=== PATIENT | male | born 1975 | race Caucasian/White ===

== ENCOUNTER → 2018-05-20 12:08 | Outpatient (CLI) | payer OTHER, SELFPAY ==
[2018-05-21 16:09] LABS: Endomysial Antibody IgA Negative (Negative)
[2018-05-22 13:41] LABS: Immunoglobulin A 131 mg/dL (90-386); t-Transglutaminase IgA <2 U/mL (0-3)
== END ==
PROVIDERS: Family Provider Family Medicine; PCP Family Medicine; Referring Provider Family Medicine; Visit Provider Family Medicine
DX: K52.9 Noninfective gastroenteritis and colitis, unspecified (principal)
CPT/HCPCS: 82784; 83516; 86255

== ENCOUNTER → 2020-11-16 11:00 | Outpatient (CLI) | payer OTHER, SELFPAY ==
[2020-11-16 12:10] LABS: Hematocrit 44.4 % (40-54); Hemoglobin 14.8 g/dL (13.0-16.5); Mean Corp Hgb Conc 33.3 g/dL (32-36); Mean Corpuscular Hgb 29.9 pg (27.0-32.0); Mean Corpuscular Volume 89.7 fL (80-94); Mean Platelet Vol. 10.1 fl (6.2-12.0); Platelet Count 294 K/mm3 (150-450); RBC Distribution Width CV 12.6 % (11.6-14.6); RBC Distribution Width SD 41.5 fl (35.1-43.9); Red Blood Count 4.95 M/mm3 (4.6-6.2); White Blood Count 6.5 K/mm3 (4.4-11.0)
[2020-11-16 12:34] LABS: CRP 9.05 mg/L (0.0-3.0)
[2020-11-17 16:08] LABS: Endomysial Antibody IgA Negative (Negative)
[2020-11-17 18:44] LABS: Immunoglobulin A 122 mg/dL (90-386); t-Transglutaminase IgA <2 U/mL (0-3)
== END ==
PROVIDERS: PCP Family Medicine; Referring Provider Internal Medicine Gastroenterology; Visit Provider Internal Medicine Gastroenterology
DX: R19.7 Diarrhea, unspecified (principal)
CPT/HCPCS: 36415; 82784; 83516; 85027; 86140; 86255

== ENCOUNTER → 2021-07-18 | Outpatient (CLI) | payer OTHER, SELFPAY | END | disposition home or self-care (01) | LOC: LABSPEC 15:24 | PROVIDERS: PCP Family Medicine; Visit Provider Family Medicine | DX: Z20.828 Contact with and (suspected) exposure to other viral communicable diseases (principal) | CPT/HCPCS: 87633; 87635; U0005; U0003 ==

== ENCOUNTER 2021-11-13 08:09 | Outpatient (CLI) | payer OTHER, SELFPAY ==
[2021-11-15 14:48] LABS: H. PYLORI STOOL AG Negative (Negative)
[2021-11-15 21:25] LABS: Calprotectin, Stool 304 ug/g (0-120)
== END 2021-11-13 23:59 | disposition home or self-care (01) ==
LOC: LABSPEC 08:11
PROVIDERS: PCP Family Medicine; Referring Provider Internal Medicine Gastroenterology; Visit Provider Internal Medicine Gastroenterology
DX: R19.7 Diarrhea, unspecified (principal)
CPT/HCPCS: 83630; 83993; 87177; 87209; 87493; 87506

== ENCOUNTER 2021-11-20 18:30 | Outpatient (CLI) | payer OTHER, SELFPAY ==
--- NOTE | 2021-11-20 18:39 | CT_ITS ---
STUDY: CT ABDOMEN AND PELVIS WITH CONTRAST REASON FOR EXAM: Male, 46 years old. diarrhea RADIATION DOSAGE (If Supplied By Facility): CTDIvol = ( 16.04 ) mGy, DLP = ( 1220.32 ) mGycm TECHNIQUE: Transaxial images were obtained from the dome of the diaphragm to the symphysis pubis without oral contrast. Oral and amp; IV Gastrografin and amp; 100mL Isovue-300 was administered. Sagittal and coronal images were reconstructed. Individualized dose optimization techniques were used for this CT. COMPARISON: None. FINDINGS: The visualized lung bases are unremarkable. The visualized portions of the heart are within normal limits. Normal liver. Normal gallbladder and extrahepatic biliary system. Normal spleen. Normal pancreas. Normal bilateral adrenal glands. There is a 4 mm nonobstructing stone in the right kidney.. Normal left kidney. Normal visualized stomach. The terminal ileum is thickened.. Normal colon. The appendix is visualized and appears normal. Normal abdominal aorta. Normal inferior vena cava. Normal retroperitoneum. Normal urinary bladder. Normal abdominal wall. Normal osseous structures. CT/Abdomen/Pelvis WITH Contrast IMPRESSION: The terminal ileum is thickened. Electronically Signed: Chandrakant Hale MD at 6:40 EDT ,
== END 2021-11-20 23:59 | disposition home or self-care (01) ==
LOC: CT 18:37
PROVIDERS: PCP Family Medicine; Visit Provider Internal Medicine Gastroenterology
DX: R19.7 Diarrhea, unspecified (principal)
CPT/HCPCS: 74177; Q9967

== ENCOUNTER 2021-12-05 14:51 | Outpatient (CLI) | payer OTHER, SELFPAY ==
[2021-12-05 15:27] LABS: Erythrocyte Sedimentation Rate 12 mm/hr (0-20)
[2021-12-05 15:51] LABS: CRP 8.93 mg/L (0.0-3.0); LDH 159 U/L (87-241)
[2021-12-07 14:11] LABS: Anti-Centromere B Ab <0.2 AI (0.0-0.9); Anti-Chromatin <0.2 AI (0.0-0.9); Anti-Jo <0.2 AI (0.0-0.9); Anti-Scleroderma-70 AB <0.2 AI (0.0-0.9); RNP Ab <0.2 AI (0.0-0.9); SJOGREN'S Anti-SS-A test < 0.2 AI (0.0-0.9); SJOGREN'S Anti-SS-B test < 0.2 AI (0.0-0.9); Smith Ab <0.2 AI (0.0-0.9)
[2021-12-07 15:58] LABS: Anti-dsDNA Ab <1 IU/mL (0-9)
[2021-12-15 15:08] LABS: Albumin 3.8 g/dL (2.9-4.4); Alpha-1-Globulins 0.2 g/dL (0.0-0.4); Cytoplasmic Ab (C-ANCA) <1:20 titer (Neg:<1:20); Endomysial Antibody IgA Negative (Negative); Gamma Globulin 1.1 g/dL (0.4-1.8); Immunoglobulin A 132 mg/dL (90-386); Immunoglobulin E 55 IU/mL (6-495); Immunoglobulin G 996 mg/dL (603-1613); Immunoglobulin M 122 mg/dL (20-172); PROEL- TOTAL PROTEIN 7.2 g/dL (6.0-8.5)
[2021-12-15 18:07] LABS: Perinuclear Ab (P-ANCA) <1:20 titer (Neg:<1:20); t-Transglutaminase IgA <2 U/mL (0-3)
== END 2021-12-05 23:59 | disposition home or self-care (01) ==
LOC: LAB 14:52
PROVIDERS: PCP Family Medicine; Visit Provider Internal Medicine Gastroenterology
DX: R19.7 Diarrhea, unspecified (principal)
CPT/HCPCS: 36415; 82784; 82785; 83516; 83615; 84165; 85652; 86140; 86225; 86235; 86255; 86256; 86334

== ENCOUNTER 2022-01-11 14:18 | Outpatient (RCR) | payer OTHER, SELFPAY | END 2022-01-16 23:59 | LOC: NS 14:18 | PROVIDERS: PCP Family Medicine; Referring Provider Family Medicine; Visit Provider Family Medicine | DX: E66.9 Obesity, unspecified (principal); Z68.32 Body mass index [BMI] 32.0-32.9, adult | CPT/HCPCS: 97802 ==

== ENCOUNTER 2022-02-01 05:27 | Day surgery (SDC) | payer OTHER, SELFPAY ==
[2022-02-01] VITALS (7 sets, daily range): BP systolic 113–133; BP diastolic 78–84; PULSE 74–90; RESP 16–18; TEMP 36.4–36.7; O2SAT 97; BMI 31.6
[2022-02-01] MEDS: Lactated Ringers 1,000 ML 15 ML IV (06:27)
--- NOTE | 2022-02-01 06:30 | IMM_PTH ---
PATIENT: ROSE HANNON LOC: EN U#:[id number] AGE/SX: 46/M ROOM: RE02/01/[address]: Dr. Leo Davila DO : 1975 BED: DIS: 02/01/2022 SPEC #: [id number] RECD: 02/01/22 13:37 STATUS: ROMÁN REQ #: [id number] LENY: 02/01/22 06:[address]: Leo Davila DEPT: IMMUNOHISTOCHEMISTRY RECD BY: Ambar Anna ENTERED: 02/01/22 13:38 SP TYPE: IMMUNO OTHR DR: Dr. Bj Wyatt MD Tissues: C - Stomach, NOS Procedures: H Pylori (initial) PHYSICIAN & INSTITUTION [place] [address] SPECIMEN INFORMATION: Tissue Source: C ? Gastric pyloric biopsy Clinical Info: Diarrhea, Laboy?s esophagus Specimen Number: [id number] CPT code: 68427 METHODOLOGY: Deparaffinized sections of prefer/formalin-fixed tissue or PAP/DQ stained slides are incubated with monoclonal/polyclonal antibodies/oligonucleotide probes. Localization is made via biotin free immunoperoxidase method. Appropriate controls are performed and reacted as expected. Results on target cell population are indicated in the following table: RESULTS: ANTIBODY / CLONE RESULT Block C H Pylori (polyclonal) negative These tests were developed and their performance characteristics determined by [facility]. They may not have been cleared or approved by the U.S. Food and Drug Administration. The FDA has determined that such clearance or approval is not necessary. The above immunohistochemical/dualISH markers are ordered and reviewed by the Pathologist. INTERPRETATION: C. Gastric polyp, biopsy: Negative for Helicobacter pylori organisms. SJ:jeny 02/06/2022
--- NOTE | 2022-02-01 06:30 | EGD_PTH ---
PATIENT: ROSE HANNON LOC: EN U#:[id number] AGE/SX: 46/M ROOM: RE02/01/[address]: Dr. Leo Davila DO : 1975 BED: DIS: 02/01/2022 SPEC #: [id number] RECD: 02/01/22 10:47 STATUS: ROMÁN REAparna #: [id number] LENY: 02/01/22 06:[address]: Leo Davila DEPT: SURGICAL PATHOLOGY RECD BY: Aggie Cavazos ENTERED: 02/01/22 12:51 SP TYPE: EGD [facility]OPSY [facility] DR: Dr. Bj Wyatt MD Tissues: A - Duodenum, NOS B - Submucosa C - Gastric mucous membrane D - Gastric mucous membrane E - Esophagus, NOS Procedures: Surgery Specimen Level IV HEADER OPERATION: EGD ([facility]) PRE-OP DIAGNOSIS: Diarrhea, Laboy?s esophagus TISSUE SUBMITTED: A ? Duodenum biopsy, B ? Submucosal lesion biopsy, C ? Gastric pyloric biopsy, D ? Gastric body biopsy, E ? Distal esophagus biopsy MICROSCOPIC DIAGNOSIS A. Duodenum, biopsy: Fragments of duodenal mucosa with acute and chronic inflammation. B. Submucosal lesion, biopsy: Fragments of gastric mucosa with mild chronic inflammation. See comment. C. Gastric pylorus, biopsy: Fragments of gastric mucosa with focal moderate chronic inflammation. Focal intestinal metaplasia (goblet cell metaplasia). See comment. D. Gastric body, biopsy: Mild gastritis. See microscopic description. E. Distal esophagus, biopsy: Fragments of gastroesophageal mucosa with moderate chronic inflammation and mild acute inflammation. Intestinal metaplasia (goblet cell metaplasia) not identified. SJ:jeny 02/02/2022 COMMENT B. Submucosa is not seen in the submitted specimen. C. The results of immunohistochemistry for Helicobacter pylori will be reported separately ([id number]). Alcian blue/PAS stain with matched control is used in the evaluation of the specimen. E. Alcian blue/PAS stain with matched control is used in the evaluation of the specimen. The specimen predominantly consists of gastric mucosa. Correlation with clinical, endoscopic findings and appropriate follow up are necessary. MICROSCOPIC DESCRIPTION Slides are reviewed. D. The specimen shows fragments of gastric mucosa with chronic inflammatory cell infiltrates in the lamina propria consisting of lymphocytes and plasma cells, consistent with mild chronic gastritis. GROSS DESCRIPTION A - Received in fixative is one container labeled with the patient's name and designated duodenum biopsy. The specimen consists of multiple irregular fragments of [place] soft tissue that in aggregate measure 1 x 0.3 x 0.1 cm. The specimen is totally submitted in one cassette. B - Received in fixative is one container labeled with the patient's name and designated submucosal lesion. The specimen consists of two irregular fragments of [place] soft tissue that in aggregate measure 0.6 x 0.3 x 0.1 cm. The specimen is totally submitted in one cassette. C - Received in fixative is one container labeled with the patient's name and designated gastric pyloric biopsy. The specimen consists of one irregular fragment of [place] soft tissue that measures 0.3 x 0.3 x 0.1 cm. The specimen is totally submitted in one cassette. D - Received in fixative is one container labeled with the patient's name and designated gastric body biopsy. The specimen consists of two irregular fragments of [place] soft tissue that in aggregate measure 0.7 x 0.4 x 0.1 cm. The specimen is totally submitted in one cassette. E - Received in fixative is one container labeled with the patient's name and designated distal esophagus biopsy. The specimen consists of multiple irregular fragments of [place] soft tissue that in aggregate measure 1.3 x 0.3 x 0.1 cm. The specimen is totally submitted in one cassette. / SJ:rg 02/01/2022 TC:3 [facility]: [id number] x5, [id number] x2
--- NOTE | 2022-02-01 06:55 | PCM.HP.BLA ---
History and Physical Date of Admission: 02/01/22 ROSE HANNON, is a 46 M who presents to the office today for further evaluation of diarrhea.? He says that he has been having diarrhea for multiple years.? He has been having more than 6 bowel movements a day without relief from medical therapy or diet change.? He does also have nocturnal diarrhea on occasion.? He denies any fecal incontinence.? He has been on Viberzi with minimal relief. ? He does not know if he has had any other specific medicines for his diarrhea.? His weight has been stable.? He denies any chest pain or shortness of breath.? He denies any nausea.? He has no food intolerances or allergies.? He denies any rash.? He does have well water.? He cannot recall if he has had a stool check for infection.? He has no arthralgias or arthritis.? He has not had any imaging of his abdomen or pelvis.? He has not had any surgeries, other than his wisdom teeth removed.? Viberzi is the only medicine he takes on a daily basis. ROS Const Constitutional: No anorexia, fatigue, fever(s), weight change or sleep problems Eyes Eyes: No change in vision ENT ENT: No abnormal hearing, difficulty swallowing, mouth lesions, tongue swelling or throat swelling Resp Respiratory: No cough or shortness of breath Cardio Cardiology: No chest pain at rest, chest pain with exertion, shortness of breath or dyspnea on exertion Gastro GI: Positive for diarrhea; No difficulty swallowing Genitourinary Male: No difficulty urinating or burning urination Musc Musculoskeletal: No joint pain, joint swelling, muscle weakness or decreased muscle mass Skin Skin: No hair loss in leg, yellowing of the eye, itchy eyes, rash, skin ulcer or skin swelling Neuro Neurology: No abnormal hearing, abnormal movements, confusion, unsteady gait/balance or memory loss Psych Psychiatric: No anxiety, No confusion and No memory loss Endo Endocrine: No fatigue or weight change Aller/Imm Allergy/Immunologic: No itchy eyes, throat swelling or tongue swelling Baron/Lymp Hematologic/Lymphatic: No easy bleeding, easy bruising or enlarged lymph nodes Exam Const General: cooperative and comfortable Nutritional Appearance: average body habitus and well nourished HENMT Head: normal to inspection Ears: hearing grossly normal bilaterally Nose: external nose normal Face and sinus: normal facial exam Mouth: oral mucosae normal Throat: posterior oropharynx normal Eyes General: appearance normal, both eyes and all related structures Neck Neck: normal visual inspection Chest Chest palpation & inspection: normal inspection of the chest and normal palpation of entire chest wall Resp Effort & Inspection: normal respiratory effort Auscultation: Bilateral: Clear to Auscultation Cardio Palpation: normal PMI Rate: regular rate Rhythm: regular rhythm GI Inspection: normal to inspection Auscultation: normal bowel sounds Percussion: normal to percussion Palpation: no hepatosplenomegaly Skin General: no rashes or lesions noted Neuro General: patient alert Extrem General: normal to inspection Psych Affect: normal affect Quality Reporting Tobacco Screening ([facility] 138) Smoking Status: Never smoker Assessment and Plan Assessment and Plan (1) Diarrhea: ?Status:?Acute ? ? ? Orders:?Orders: ? Calprotectin, Stool Today ? ? ? Ova and Parasites 8623 Today ? ? ? CDIFF (PCR) Today ? ? ? ENTERIC PATHOGEN PANEL STOOL Today ? ? ? H. PYLORI STOOL AG Today ? ? ? Stool Lactoferrin/WBC Today ? ? ? Abdomen/Pelvis WITH Contrast Today ?Plan: Will get stool testing for him infectious diarrhea, H. pylori and we will also get his previous blood work for his diarrhea work-up and we will get a CT abdomen pelvis to evaluate for any structural abnormality.? We may also check a serum gastrin level and he will need an upper endoscopy to evaluate his upper GI tract and possibly.? After he is given stool testing done we will get an an antibiotic. I have re-examined the patient. There are no clinical changes since date of exam.
--- NOTE | 2022-02-01 07:02 | OP.EGD_ITS ---
Patient Name: Adrian Brizuela Procedure Date: 02/01/2022 6:19 AM Date of : 1975 Age: 46 Procedure: Upper GI endoscopy Indications: Epigastric abdominal pain, Functional Dyspepsia Providers: Leo Davila DO Referring MD: Leo Davila DO Medicines: Monitored Anesthesia Care Patient Profile: This is a 46 year old male. Refer to note in patient chart for documentation of history and physical. Patient has symptoms. Complications: No immediate complications. Procedure: Pre-Anesthesia Assessment: - Prior to the procedure, a History and Physical was performed, and patient medications and allergies were reviewed. The risks and benefits of the procedure and the sedation options and risks were discussed with the patient. All questions were answered and informed consent was obtained. Patient identification and proposed procedure were verified by the physician in the pre-procedure area. Mental Status Examination: alert and oriented. Airway Examination: normal oropharyngeal airway and neck mobility. Respiratory Examination: clear to auscultation. CV Examination: normal. Prophylactic Antibiotics: The patient does not require prophylactic antibiotics. Prior Anticoagulants: The patient has taken no previous anticoagulant or antiplatelet agents. After reviewing the risks and benefits, the patient was deemed in satisfactory condition to undergo the procedure. The anesthesia plan was to use moderate sedation / analgesia (conscious sedation). Immediately prior to administration of medications, the patient was re-assessed for adequacy to receive sedatives. The heart rate, respiratory rate, oxygen saturations, blood pressure, adequacy of pulmonary ventilation, and response to care were monitored throughout the procedure. The physical status of the patient was re-assessed after the procedure. After obtaining informed consent, the endoscope was passed under direct vision. Throughout the procedure, the patient's blood pressure, pulse, and oxygen saturations were monitored continuously. The gastroscope was introduced through the mouth, and advanced to the second part of duodenum. The upper GI endoscopy was accomplished without difficulty. The patient tolerated the procedure well. Scope In: 6:44:48 AM Scope Out: 6:53:44 AM Total Procedure Duration Time 0 hours 8 minutes 56 seconds Findings: The Z-line was irregular and was found 38 cm from the incisors. Biopsies were taken with a cold forceps for histology. Verification of patient identification for the specimen was done. Estimated blood loss was minimal. Patchy mildly erythematous mucosa without bleeding was found in the gastric body. Biopsies were taken with a cold forceps for histology. Verification of patient identification for the specimen was done. Estimated blood loss was minimal. Patchy mild inflammation characterized by congestion (edema) was found in the duodenal bulb, in the first portion of the duodenum and in the second portion of the duodenum. Biopsies were taken with a cold forceps for histology. Verification of patient identification for the specimen was done. Estimated blood loss was minimal. There was a small lipoma, 5 mm in diameter, in the gastric antrum. Impression: - Z-line irregular, 38 cm from the incisors. Biopsied. - Erythematous mucosa in the gastric body. Biopsied. - Duodenitis. Biopsied. Recommendation: - Discharge patient to home. - Resume previous diet. - Continue present medications. - Await pathology results. Procedure Code(s): --- Professional --- 35566, Esophagogastroduodenoscopy, flexible, transoral; with biopsy, single or multiple CPT copyright 2017 [employer]. All rights reserved. The codes documented in this report are preliminary and upon excellence leader review may be revised to meet current compliance requirements. Leo Davila DO 02/01/2022 7:02:11 AM This report has been signed electronically. Number of Addenda: 1 Note Initiated On: 02/01/2022 6:19 AM Addendum Number: 1 Addendum Date: 05/22/2022 6:13:27 AM MAC was used as sedation for this procedure. Leo Davila DO 05/22/2022 6:13:31 AM This report has been signed electronically.
--- NOTE | 2022-02-01 07:03 | OP.CCLET_ITS ---
05/22/2022 Bj Wyatt Re : Upper GI endoscopy procedure for Adrian Brizuela Dear Edmundo This procedure was performed on January. My impressions and recommendations are as follows: Impressions : - Z-line irregular, 38 cm from the incisors. Biopsied. - Erythematous mucosa in the gastric body. Biopsied. - Duodenitis. Biopsied. Recommendations : - Discharge patient to home. - Resume previous diet. - Continue present medications. - Await pathology results. My findings are described in the full procedure note, which is enclosed. If I can be of further assistance, please feel free to contact me at . Sincerely, eLo Davila DO 02/01/2022 7:02:11 AM This report has been signed electronically.
== END 2022-02-01 07:27 | disposition home or self-care (01) ==
LOC: EN 05:33 → AC 05:33
PROVIDERS: PCP Family Medicine; Referring Provider Internal Medicine Gastroenterology; Visit Provider Internal Medicine Gastroenterology
PROC: 0DJ08ZZ Inspection of Upper Intestinal Tract, Via Natural or Artificial Opening Endoscopic (ICD-10-PCS; CPT 43235; principal; 2022-02-01 06:25)
DX: K31.A0 Gastric intestinal metaplasia, unspecified (principal); K29.50 Unspecified chronic gastritis without bleeding; R19.7 Diarrhea, unspecified; K29.80 Duodenitis without bleeding; K30 Functional dyspepsia
CPT/HCPCS: 43239; 88305; 88342; J7120; J2405

== ENCOUNTER 2022-02-13 15:31 | Outpatient (RCR) | payer OTHER, SELFPAY | END 2022-02-15 23:59 | LOC: NS 15:31 | PROVIDERS: PCP Family Medicine; Referring Provider Family Medicine; Visit Provider Family Medicine | DX: Z71.3 Dietary counseling and surveillance (principal); E66.9 Obesity, unspecified; Z68.32 Body mass index [BMI] 32.0-32.9, adult | CPT/HCPCS: 97803 ==

== ENCOUNTER → 2022-03-16 | Outpatient (CLI) | payer OTHER, SELFPAY ==
[2022-03-16 10:32] LABS: Erythrocyte Sedimentation Rate 16 mm/hr (0-20)
[2022-03-16 10:46] LABS: CRP 8.15 mg/L (0.0-3.0); Lipase 148 U/L (73-393)
[2022-03-21 12:08] LABS: HEPATITIS B SURFACE AG Negative (Negative); Hep C Antibodies <0.1 s/co ratio (0.0-0.9); Hepatitis A IgM Antibody Negative (Negative); Hepatitis B Core AB IgM Negative (Negative); QNTFERON TB Mitogen Value > 10.00 IU/mL (.); QNTFERON TB Nil Value 0.07 IU/mL (.); QNTFERON TB1+ Ag Value 0.06 IU/mL (.); QNTFERON TB2+ Ag Value 0.08 IU/mL (.)
[2022-03-21 16:21] LABS: QNTIFERON TB Positive Criteria Negative (Negative)
== END | disposition home or self-care (01) ==
LOC: LAB 09:47
PROVIDERS: PCP Family Medicine; Referring Provider Internal Medicine Gastroenterology; Visit Provider Internal Medicine Gastroenterology
DX: R19.7 Diarrhea, unspecified (principal)
CPT/HCPCS: 36415; 80074; 83690; 85652; 86140; 86480

== ENCOUNTER → 2022-03-19 | Outpatient (CLI) | payer OTHER, SELFPAY ==
--- NOTE | 2022-03-19 15:30 | RAD_ITS ---
EXAM: XR ABDOMEN, 1 VIEW CLINICAL INDICATION: capsule study Technologist Notes PT TOOK AGILE CAPSULE AT 9:30 YESTERDAY MORNING TECHNIQUE: Frontal supine view of the abdomen/pelvis. This report was created using QuicklyChat report CO-Value technology. COMPARISON: None. FINDINGS: LOWER THORAX: No acute pathology. GASTROINTESTINAL TRACT: Rectangular object Visualized in the right upper quadrant. This is likely the AGILE capsule. This is at the level of the proximal transverse colon. Stool noted in the ascending and proximal transverse colon. Non-obstructive. No bowel or stomach distention. ORGANS: There are calcified phleboliths in the pelvis. This makes differentiation with distal ureteral stones difficult. No organomegaly. BONES/JOINTS: No acute pathology. SOFT TISSUES: No acute pathology. RAD/Abdomen Single View IMPRESSION: Rectangular object Visualized in the right upper quadrant. This is likely the AGILE capsule. This is at the level of the proximal transverse colon. Electronically Signed: Gaston Darden MD at 16:19 EDT ,
== END | disposition home or self-care (01) ==
LOC: RAD 15:28
PROVIDERS: PCP Family Medicine; Visit Provider Internal Medicine Gastroenterology
DX: R19.7 Diarrhea, unspecified (principal)
CPT/HCPCS: 74018

== ENCOUNTER → 2022-03-31 | Outpatient (CLI) | payer OTHER, SELFPAY ==
--- NOTE | 2022-03-31 10:58 | RAD_ITS ---
STUDY: X-RAY - ABDOMEN/PELVIS REASON FOR EXAM: Male, 46 years old. Abdominal pain, pillcam TECHNIQUE: Two AP supine views of the abdomen and pelvis. COMPARISON: None. FINDINGS: Normal visualized lung bases. There is an unremarkable bowel gas pattern. There is no demonstrated free abdominal air. The visualized liver, spleen and kidneys are grossly normal in size and morphology. There are calcified phleboliths in the pelvis. Normal visualized osseous structures. No plain film evidence of foreign body in the GI tract RAD/Abdomen Single View IMPRESSION: Normal x-ray examination of the abdomen and pelvis. Electronically Signed: Scott Mahan MD at 10:10 EDT ,
== END | disposition home or self-care (01) ==
LOC: RAD 04-02 09:00
PROVIDERS: PCP Family Medicine; Referring Provider Internal Medicine Gastroenterology; Visit Provider Internal Medicine Gastroenterology
DX: R10.9 Unspecified abdominal pain (principal)
CPT/HCPCS: 74018

== ENCOUNTER → 2022-05-15 | Outpatient (CLI) | payer OTHER, SELFPAY ==
[2022-05-15 13:06] VITALS: BP 134/87; PULSE 87; TEMP 35.7; O2SAT 98
[2022-05-15] MEDS: 0.9% NaCl IVPB Med Flush (250 mL) 15 ML IV (13:38)
[2022-05-15] MEDS: 0.9% NaCl Peripheral Flush Adult/Peds IV (13:39)
[2022-05-15 14:58] VITALS: BP 124/71; PULSE 95; RESP 16; TEMP 36.3
== END | disposition home or self-care (01) ==
LOC: MEDOUTP 12:53
PROVIDERS: PCP Family Medicine; Referring Provider Internal Medicine Gastroenterology; Visit Provider Internal Medicine Gastroenterology
DX: K50.90 Crohn's disease, unspecified, without complications (principal)
CPT/HCPCS: 96365; J7050; A4216; J3358

== ENCOUNTER → 2022-05-23 | Outpatient (CLI) | payer OTHER, SELFPAY ==
[2022-05-23 17:31] LABS: Absolute Lymphocyte Count 1.82 X10^3/uL (0.83-4.51); Absolute Neutrophil Count 8.4 X10^3/uL (2.0-7.7); Basophil# 0.03 X10^3/uL; Basophil% 0.3 % (0-1); Eosinophil# 0.03 X10^3/uL; Eosinophils% 0.3 % (0-5); Hematocrit 41.1 % (40-54); Hemoglobin 14.3 g/dL (13.0-16.5); Lymphocyte # 1.82 X10^3/ul (0.83-4.51); Lymphocyte % 16.8 % (19-41); Mean Corp Hgb Conc 34.8 g/dL (32-36); Mean Corpuscular Hgb 31.2 pg (27.0-32.0); Mean Corpuscular Volume 89.7 fL (80-94); Mean Platelet Vol. 9.9 fl (6.2-12.0); Monocyte# 0.49 X10^3/uL; Monocyte% 4.5 % (0-10); NRBC Flagged by Analyzer 0 % (0-5); Neutrophil % 77.4 % (47-70); Platelet Count 286 K/mm3 (150-450); RBC Distribution Width CV 13.3 % (11.6-14.6); RBC Distribution Width SD 43.5 fl (35.1-43.9); Red Blood Count 4.58 M/mm3 (4.6-6.2); White Blood Count 10.9 K/mm3 (4.4-11.0)
[2022-05-23 17:58] LABS: Vitamin B12 302 pg/mL (211-911); Vitamin D,25 Hydroxy 23.1 ng/mL
[2022-05-23 18:16] LABS: ALB/GLOB Ratio 0.9 RATIO (0.9-2.4); AST(SGOT) 17 U/L (15-37); Alanine Aminotransfer ALT/SGPT 48 U/L (16-61); Albumin, Serum 3.7 g/dL (3.2-5.0); Alkaline Phosphatase 68 U/L (45-117); Anion Gap 9 (5-15); BUN 28 mg/dL (7-18); BUN/Creat Ratio 22.8 RATIO (10-20); Calcium,Total 9.4 mg/dL (8.5-10.1); Chloride 106 mmol/L (98-107); Cholesterol 226 mg/dL (200); Creatinine, Serum 1.23 mg/dL (0.70-1.30); EST Glomerular Filtration Rate 66 mL/min (>60); Est Glom Filt Rate - Afr Amer 80 mL/min (>60); Ferritin 164 ng/mL (26-388); Globulin 3.9 g/dL (2.2-4.2); Glucose 142 mg/dL (74-106); High Density Lipoprotein 39 mg/dL; Iron 73 ug/dL (65-175); Potassium 3.7 mmol/L (3.5-5.1); Protein, Total 7.6 g/dL (6.4-8.2); Sodium Level 138 mmol/L (136-145); T4 Free Direct 0.92 ng/dL (0.76-1.46); Triglycerides 561 mg/dL
== END | disposition home or self-care (01) ==
LOC: MFPLAB 15:39
PROVIDERS: PCP Family Medicine; Referring Provider Family Medicine; Visit Provider Family Medicine
DX: E78.5 Hyperlipidemia, unspecified (principal); K50.90 Crohn's disease, unspecified, without complications; R53.83 Other fatigue
CPT/HCPCS: 36415; 80053; 80061; 82306; 82607; 82728; 83540; 84439; 84443; 85025

== ENCOUNTER → 2022-05-28 | Outpatient (CLI) | payer OTHER, SELFPAY ==
[2022-05-28 10:53] LABS: Hemoglobin A1c 6.5 % (3.8-5.6)
[2022-05-28 11:17] LABS: AST(SGOT) 14 U/L (15-37); Alanine Aminotransfer ALT/SGPT 44 U/L (16-61); Albumin, Serum 3.4 g/dL (3.2-5.0); Alkaline Phosphatase 57 U/L (45-117); Anion Gap 8 (5-15); BUN 20 mg/dL (7-18); BUN/Creat Ratio 21.7 RATIO (10-20); Chloride 106 mmol/L (98-107); Cholesterol 204 mg/dL (200); Creatinine, Serum 0.92 mg/dL (0.70-1.30); EST Glomerular Filtration Rate 93 mL/min (>60); Est Glom Filt Rate - Afr Amer 112 mL/min (>60); Globulin 3.3 g/dL (2.2-4.2); Glucose 118 mg/dL (74-106); High Density Lipoprotein 39 mg/dL; Potassium 3.7 mmol/L (3.5-5.1); Protein, Total 6.7 g/dL (6.4-8.2); Sodium Level 141 mmol/L (136-145); Triglycerides 389 mg/dL; Very Low Density Lipoprotein 78 mg/dL (5-40)
== END | disposition home or self-care (01) ==
LOC: MFPLAB 08:29
PROVIDERS: PCP Family Medicine; Visit Provider Family Medicine
DX: E78.1 Pure hyperglyceridemia (principal)
CPT/HCPCS: 36415; 80053; 80061; 83036

== ENCOUNTER 2022-08-01 05:28 | Day surgery (SDC) | payer OTHER, SELFPAY ==
[2022-08-01] VITALS (7 sets, daily range): BP systolic 101–126; BP diastolic 79–90; PULSE 81–95; RESP 16–18; TEMP 36.1–36.8; O2SAT 93–97; BMI 31.4
[2022-08-01] MEDS: Lactated Ringers 1,000 ML 15 ML IV (06:07)
--- NOTE | 2022-08-01 06:29 | PCM.HP.BLA ---
History and Physical Date of Admission: 08/01/22 ADRIAN HANNON, is a 46 M who presents to the office today for a follow up visit following an EGD. Adrian established with our clinic on 11/08/21 for further evaluation of diarrhea.? He says that he has been having diarrhea for multiple years.? He has been having more than 6 bowel movements a day without relief from medical therapy or diet change.? He does also have nocturnal diarrhea on occasion.? He denies any fecal incontinence.? He has been on Viberzi with minimal relief. ? He does not know if he has had any other specific medicines for his diarrhea.? His weight has been stable.? He denies any chest pain or shortness of breath.? He denies any nausea.? He has no food intolerances or allergies.? He denies any rash.? He does have well water.? He cannot recall if he has had a stool check for infection.? He has no arthralgias or arthritis.? He has not had any imaging of his abdomen or pelvis.? He has not had any surgeries, other than his wisdom teeth removed.? Viberzi is the only medicine he takes on a daily basis. Abdominal CT .12.08-?The terminal ileum is thickened. EGD 02.01.22?- Z-line irregular, 38 cm from the incisors. Biopsied. ? - Erythematous mucosa in the gastric body.? Biopsied. ? - Duodenitis. Biopsied Pathology found chronic inflammation. Negative for H-pylori Today reports- no changes since his last visit. Patient is still having frequent diarrhea, abdominal pain, gas, and bloating. Patient is not taking any medications currently. ROS Const Constitutional: No fatigue, fever(s), frequent falls, headache(s) or weight change Eyes Eyes: No change in vision ENT ENT: No headache(s) or difficulty swallowing Resp Respiratory: No cough or shortness of breath Cardio Cardiology: No leg pain with exertion Gastro GI: Positive for abdominal pain, bloating, diarrhea and excessive flatus; No change in bowel habits, constipation, heartburn, difficulty swallowing, Vomiting blood/hematemesis, Blood in stool, nausea/dyspepsia or vomiting Genitourinary Male: No difficulty urinating or burning urination Musc Musculoskeletal: Positive for back pain; No abnormal gait, joint pain, joint swelling, muscle cramps, muscle weakness, numbness, stiffness, tingling, Arthritis, sciatica, leg pain at night or leg pain with exertion Skin Skin: No dry skin, lesions, itchy eyes or rash Neuro Neurology: No abnormal gait, dizziness, frequent falls, headache(s), numbness, tingling, tremor(s), Increased tone in limbs, paralysis or seizures Psych Psychiatric: No anxiety, No depression, No paranoia, No Behavioral Problems, No Compulsive Behavior, No hyperactivity, No inattentiveness, No obsessions/compulsions, Positive for Temper Tantrums and No suicidal ideation Endo Endocrine: No fatigue or weight change Aller/Imm Allergy/Immunologic: No itchy eyes Baron/Lymp Hematologic/Lymphatic: No easy bleeding or easy bruising Exam Const General: cooperative and comfortable Nutritional Appearance: average body habitus and well nourished HENMT Head: normal to inspection Ears: hearing grossly normal bilaterally Nose: external nose normal Face and sinus: normal facial exam Mouth: oral mucosae normal Throat: posterior oropharynx normal Eyes General: appearance normal, both eyes and all related structures Neck Neck: normal visual inspection Chest Chest palpation & inspection: normal inspection of the chest and normal palpation of entire chest wall Resp Effort & Inspection: normal respiratory effort Auscultation: Bilateral: Clear to Auscultation Cardio Palpation: normal PMI Rate: regular rate Rhythm: regular rhythm GI Inspection: normal to inspection Auscultation: normal bowel sounds Percussion: normal to percussion Palpation: no hepatosplenomegaly Skin General: no rashes or lesions noted Neuro General: patient alert Extrem General: normal to inspection Psych Affect: normal affect Quality Reporting Tobacco Screening ([facility] 138) Smoking Status: Former smoker Assessment and Plan Assessment and Plan (1) Diarrhea: ?Status:?Acute ?Plan: His CT scan of the abdomen pelvis had shown some thickening in the terminal ileum.? Also he has increased fecal calprotectin at in his stool which I suspect is in its entirety secondary to inflammatory bowel disease.? In particular Crohn's disease more than also colitis due to the fact that he having 5-6 bowel movements per day.? I sainz consider putting him on colestipol or steroids.? However it is bearable for him now and I would not like to start him on anything prior to getting his IBD SGI for Crohn's disease, CRP, ESR, QuantiFERON gold and hepatitis panel.? I am more leaning towards Crohn's disease then we will initiate treatment with Stelara.? He will also have a agile capsule study today to swallow on Saturday ending get a KUB to make sure he goes through Saturday.? If that is fine then I would recommend a normal capsule endoscopy study. (2) GERD (gastroesophageal reflux disease): ?Status:?Acute ?Plan: . ? he is not having any symptoms of reflux disease at this time ? ? ? Orders: Orders CRP Today R19.7 - Diarrhea, unspecified ? Lipase Today R19.7 - Diarrhea, unspecified ? Hepatitis Panel Acute Today R19.7 - Diarrhea, unspecified ? Quantiferon TB-Gold+ Today R19.7 - Diarrhea, unspecified ? Erythrocyte Sed Rate Today R19.7 - Diarrhea, unspecified ? Abdomen Single View 3 Days R19.7 - Diarrhea, unspecified ? I have examined the patient and the H&P has been reviewed. There are no clinical changes since date of exam.
--- NOTE | 2022-08-01 06:30 | COLBX_PTH ---
PATIENT: ROSE HANNON LOC: EN U#:[id number] AGE/SX: 47/M ROOM: RE08/01/[address]: Dr. Leo Davila DO : 1975 BED: DIS: 08/01/2022 SPEC #: [id number] RECD: 08/01/22 12:49 STATUS: ROMÁN REAparna #: [id number] LENY: 08/01/22 06:[address]: Leo Davila DEPT: SURGICAL PATHOLOGY RECD BY: Aggie Cavazos ENTERED: 08/02/22 08:55 SP TYPE: COLON BX OT DR: Dr. Guilherme Smith MD Tissues: A - Cecum, NOS B - COLON BIOPSY Procedures: Surgery Specimen Level IV HEADER OPERATION: Colonoscopy (MAC) PRE-OP DIAGNOSIS: Diarrhea, GERD TISSUE SUBMITTED: A ? Cecum biopsy, B ? Random colonic biopsy MICROSCOPIC DIAGNOSIS A. Cecum, biopsy: Fragments of colonic mucosa, no pathologic diagnosis. B. Colon, random biopsy: Fragments of colonic mucosa, no pathologic diagnosis. KYA:jeny 08/03/2022 MICROSCOPIC DESCRIPTION Slides are reviewed. GROSS DESCRIPTION A - Received in fixative is one container labeled with the patient's name and designated cecum biopsy. The specimen consists of multiple irregular fragments of [place] soft tissue that in aggregate measure 1.5 x 0.4 x 0.1 cm. The specimen is totally submitted in one cassette. B - Received in fixative is one container labeled with the patient's name and designated random colon biopsy. The specimen consists of multiple irregular fragments of [place] soft tissue that in aggregate measure 2.5 x 0.5 x 0.1 cm. The specimen is totally submitted in one cassette. / KAY:jeny 08/02/2022 TC:4 [facility]: [id number] x2
[2022-08-01 06:40] LABS: Bedside Glucose 123 mg/dL (74-106)
--- NOTE | 2022-08-01 07:16 | OP.COLON_ITS ---
Patient Name: Adrian Brizuela Procedure Date: 08/01/2022 6:20 AM Date of : 1975 Age: 47 Procedure: Colonoscopy Indications: Crohn's disease of the small bowel and colon Providers: Leo Davila DO Referring MD: Guilherme Smith Medicines: Monitored Anesthesia Care Patient Profile: This is a 47 year old male. Refer to note in patient chart for documentation of history and physical. Last Colonoscopy: 1 year ago. Complications: No immediate complications. Procedure: Pre-Anesthesia Assessment: - Prior to the procedure, a History and Physical was performed, and patient medications and allergies were reviewed. The risks and benefits of the procedure and the sedation options and risks were discussed with the patient. All questions were answered and informed consent was obtained. Patient identification and proposed procedure were verified by the physician. Mental Status Examination: normal. Prophylactic Antibiotics: The patient does not require prophylactic antibiotics. Prior Anticoagulants: The patient has taken no previous anticoagulant or antiplatelet agents. ASA Grade Assessment: II - A patient with mild systemic disease. After reviewing the risks and benefits, the patient was deemed in satisfactory condition to undergo the procedure. The anesthesia plan was to use monitored anesthesia care (MAC). Immediately prior to administration of medications, the patient was re-assessed for adequacy to receive sedatives. The heart rate, respiratory rate, oxygen saturations, blood pressure, adequacy of pulmonary ventilation, and response to care were monitored throughout the procedure. The physical status of the patient was re-assessed after the procedure. After I obtained informed consent, the scope was passed under direct vision. Throughout the procedure, the patient's blood pressure, pulse, and oxygen saturations were monitored continuously. The colonoscope was introduced through the anus and advanced to the terminal ileum. The colonoscopy was performed without difficulty. The patient tolerated the procedure well. The quality of the bowel preparation was adequate. Scope In: 6:39:33 AM Scope Withdrawal Time 0 hours 15 minutes 51 seconds Scope Out: 7:03:38 AM Total Procedure Duration Time 0 hours 24 minutes 5 seconds Findings: The perianal and digital rectal examinations were normal. An area of moderately congested mucosa was found in the ascending colon and in the cecum. Biopsies were taken with a cold forceps for histology. Verification of patient identification for the specimen was done. Estimated blood loss was minimal. Scattered inflammation, moderate in severity and characterized by erythema, friability and granularity was found in the terminal ileum. Impression: - Congested mucosa in the ascending colon and in the cecum. Biopsied. - Ileitis. Recommendation: - Discharge patient to home. - Resume previous diet. - Continue present medications. - Await pathology results. - Repeat colonoscopy in 1 year for surveillance. Procedure Code(s): --- Professional --- 54201, Colonoscopy, flexible; with biopsy, single or multiple CPT copyright 2017 [employer]. All rights reserved. The codes documented in this report are preliminary and upon dredge mate review may be revised to meet current compliance requirements. Leo Davila DO 08/01/2022 7:15:27 AM This report has been signed electronically. Number of Addenda: 0 Note Initiated On: 08/01/2022 6:20 AM
--- NOTE | 2022-08-01 07:17 | OP.CCLET_ITS ---
08/01/2022 Guilherme Smith [address] [place] [address] Re : Colonoscopy procedure for Adrian Farihabree Dear Dr. Smith This procedure was performed on Monday, August 01, 2022. My impressions and recommendations are as follows: Impressions : - Congested mucosa in the ascending colon and in the cecum. Biopsied. - Ileitis. Recommendations : - Discharge patient to home. - Resume previous diet. - Continue present medications. - Await pathology results. - Repeat colonoscopy in 1 year for surveillance. My findings are described in the full procedure note, which is enclosed. If I can be of further assistance, please feel free to contact me at . Sincerely, Leo Davila, 08/01/2022 7:15:27 AM This report has been signed electronically.
== END 2022-08-01 07:53 | disposition home or self-care (01) ==
LOC: EN 05:28 → AC 05:30
PROVIDERS: PCP Family Medicine; Referring Provider Family Medicine; Visit Provider Internal Medicine Gastroenterology
PROC: 0DJD8ZZ Inspection of Lower Intestinal Tract, Via Natural or Artificial Opening Endoscopic (ICD-10-PCS; CPT 45378; principal; 2022-08-01 06:25)
DX: K50.90 Crohn's disease, unspecified, without complications (principal); Z87.891 Personal history of nicotine dependence
CPT/HCPCS: 45380; 82962; 88305; J7120; J2405

== ENCOUNTER → 2022-08-17 | Outpatient (CLI) | payer OTHER, SELFPAY ==
--- NOTE | 2022-08-17 12:34 | RAD_ITS ---
STUDY: X-RAY - LEFT FOOT CLINICAL: Male, 47 years old. Pain and stiffness TECHNIQUE: 3 view(s) of the foot. COMPARISON: None. FINDINGS: Normal talus, calcaneus, and tarsal bones. Normal visualized subtalar, talonavicular, calcaneocuboid, tarsal and tarsometatarsal articulations. Normal metatarsi. Normal metatarsophalangeal joint of the great toe. Normal tibial and fibular sesamoid bones. Normal interphalangeal joint of the great toe. Normal phalanges of the great toe. Normal second through fifth metatarsophalangeal joints. Normal interphalangeal joints and phalanges of the lesser toes. The soft tissue structures are unremarkable. RAD/Foot min 3 Views IMPRESSION: Normal x-ray examination of the foot. Electronically Signed: Scott Mahan MD at 13:20 EST ,
== END | disposition home or self-care (01) ==
LOC: MTRAD 12:34
PROVIDERS: PCP Family Medicine; Referring Provider Physician Assistant; Visit Provider Physician Assistant
DX: M79.672 Pain in left foot (principal)
CPT/HCPCS: 73630

== ENCOUNTER → 2022-09-20 | Outpatient (CLI) | payer OTHER, SELFPAY ==
[2022-09-20 10:03] LABS: Absolute Lymphocyte Count 1.77 X10^3/uL (0.83-4.51); Absolute Neutrophil Count 4.4 X10^3/uL (2.0-7.7); Basophil# 0.04 X10^3/uL; Basophil% 0.6 % (0-1); Eosinophil# 0.08 X10^3/uL; Eosinophils% 1.2 % (0-5); Hemoglobin 15.3 g/dL (13.0-16.5); Lymphocyte # 1.77 X10^3/ul (0.83-4.51); Lymphocyte % 26.3 % (19-41); Mean Corp Hgb Conc 33.3 g/dL (32-36); Mean Corpuscular Hgb 29.8 pg (27.0-32.0); Mean Corpuscular Volume 89.7 fL (80-94); Monocyte# 0.46 X10^3/uL; Monocyte% 6.8 % (0-10); NRBC Flagged by Analyzer 0 % (0-5); Neutrophil # 4.37 X10^3/uL (2.7-7.7); Platelet Count 230 K/mm3 (150-450); RBC Distribution Width CV 12.4 % (11.6-14.6); RBC Distribution Width SD 40.8 fl (35.1-43.9); Red Blood Count 5.13 M/mm3 (4.6-6.2); White Blood Count 6.7 K/mm3 (4.4-11.0)
[2022-09-20 10:22] LABS: Vitamin D,25 Hydroxy 38.8 ng/mL
[2022-09-20 10:33] LABS: Hemoglobin A1c 5.6 % (3.8-5.6)
[2022-09-20 10:49] LABS: AST(SGOT) 20 U/L (15-37); Alanine Aminotransfer ALT/SGPT 35 U/L (16-61); Alkaline Phosphatase 72 U/L (45-117); Anion Gap 8 (5-15); BUN 24 mg/dL (7-18); BUN/Creat Ratio 22.6 RATIO (10-20); Calcium,Total 9.4 mg/dL (8.5-10.1); Chloride 105 mmol/L (98-107); Cholesterol 189 mg/dL (200); Creatinine, Serum 1.06 mg/dL (0.70-1.30); EST Glomerular Filtration Rate 79 mL/min (>60); Est Glom Filt Rate - Afr Amer 95 mL/min (>60); Globulin 3.9 g/dL (2.2-4.2); Glucose 89 mg/dL (74-106); High Density Lipoprotein 31 mg/dL; Potassium 3.8 mmol/L (3.5-5.1); Protein, Total 7.9 g/dL (6.4-8.2); Sodium Level 139 mmol/L (136-145); Triglycerides 269 mg/dL; Very Low Density Lipoprotein 54 mg/dL (5-40)
[2022-09-20 14:10] LABS: Microalbumin,Random Urine 10.3 mg/L (NO RANGE EST.); Microalbumin:Creatinine Ratio 4.9 mg/g CRE (<30 mg/g CRE)
== END | disposition home or self-care (01) ==
LOC: MFPLAB 08:09
PROVIDERS: PCP Family Medicine; Referring Provider Family Medicine; Visit Provider Family Medicine
DX: E11.9 Type 2 diabetes mellitus without complications (principal); E55.9 Vitamin D deficiency, unspecified
CPT/HCPCS: 36415; 80053; 80061; 82043; 82306; 82570; 83036; 85025

== ENCOUNTER → 2022-09-26 | Outpatient (CLI) | payer OTHER, SELFPAY ==
[2022-09-26 18:22] LABS: Bilirubin, Direct 0.19 mg/dL (0.00-0.30)
== END | disposition home or self-care (01) ==
LOC: MFPLAB 16:05
PROVIDERS: PCP Family Medicine; Visit Provider Family Medicine
DX: E80.6 Other disorders of bilirubin metabolism (principal)
CPT/HCPCS: 36415; 82247; 82248

== ENCOUNTER → 2022-12-20 | Outpatient (CLI) | payer OTHER, SELFPAY ==
[2022-12-20 10:27] LABS: Absolute Lymphocyte Count 1.97 X10^3/uL (0.83-4.51); Absolute Neutrophil Count 3.9 X10^3/uL (2.0-7.7); Basophil# 0.04 X10^3/uL; Basophil% 0.6 % (0-1); Eosinophils% 3.1 % (0-5); Hematocrit 45.1 % (40-54); Lymphocyte # 1.97 X10^3/ul (0.83-4.51); Lymphocyte % 30.1 % (19-41); Mean Corp Hgb Conc 33.3 g/dL (32-36); Mean Corpuscular Hgb 30.2 pg (27.0-32.0); Mean Corpuscular Volume 90.7 fL (80-94); Mean Platelet Vol. 10.4 fl (6.2-12.0); Monocyte# 0.42 X10^3/uL; Monocyte% 6.4 % (0-10); NRBC Flagged by Analyzer 0 % (0-5); Neutrophil # 3.89 X10^3/uL (2.7-7.7); Neutrophil % 59.5 % (47-70); Platelet Count 253 K/mm3 (150-450); RBC Distribution Width CV 13.4 % (11.6-14.6); Red Blood Count 4.97 M/mm3 (4.6-6.2); White Blood Count 6.5 K/mm3 (4.4-11.0)
[2022-12-20 11:05] LABS: Hemoglobin A1c 5.3 % (3.8-5.6)
[2022-12-20 11:06] LABS: Microalbumin,Random Urine 8.2 mg/L (NO RANGE EST.); Microalbumin:Creatinine Ratio 4.7 mg/g CRE (<30 mg/g CRE); Vitamin D,25 Hydroxy 56.2 ng/mL
[2022-12-20 11:13] LABS: CRP 7.61 mg/L (0.0-3.0)
[2022-12-20 11:20] LABS: AST(SGOT) 22 U/L (15-37); Alanine Aminotransfer ALT/SGPT 46 U/L (16-61); Alkaline Phosphatase 80 U/L (45-117); Anion Gap 10 (5-15); BUN 16 mg/dL (7-18); BUN/Creat Ratio 15.2 RATIO (10-20); Calcium,Total 9.5 mg/dL (8.5-10.1); Chloride 102 mmol/L (98-107); Cholesterol 139 mg/dL (200); Creatinine, Serum 1.05 mg/dL (0.70-1.30); EST Glomerular Filtration Rate 80 mL/min (>60); Est Glom Filt Rate - Afr Amer 96 mL/min (>60); Globulin 4.2 g/dL (2.2-4.2); Glucose 96 mg/dL (74-106); High Density Lipoprotein 35 mg/dL; Potassium 3.8 mmol/L (3.5-5.1); Protein, Total 8.2 g/dL (6.4-8.2); Sodium Level 140 mmol/L (136-145); Triglycerides 287 mg/dL; Very Low Density Lipoprotein 57 mg/dL (5-40)
== END | disposition home or self-care (01) ==
PROVIDERS: Internal Medicine Gastroenterology; PCP Family Medicine; Visit Provider Family Medicine
DX: E11.9 Type 2 diabetes mellitus without complications (principal); K50.90 Crohn's disease, unspecified, without complications; E55.9 Vitamin D deficiency, unspecified
CPT/HCPCS: 36415; 80053; 80061; 82043; 82306; 82570; 83036; 85025; 86140

== ENCOUNTER → 2023-01-28 | Outpatient (CLI) | payer OTHER, SELFPAY ==
[2023-01-28 16:55] LABS: Erythrocyte Sedimentation Rate 8 mm/hr (0-20)
[2023-01-28 16:56] LABS: CRP 3.52 mg/L (0.0-3.0)
== END | disposition home or self-care (01) ==
LOC: LAB 15:44
PROVIDERS: PCP Family Medicine; Referring Provider Internal Medicine Gastroenterology; Visit Provider Internal Medicine Gastroenterology
DX: K50.90 Crohn's disease, unspecified, without complications (principal)
CPT/HCPCS: 36415; 85652; 86140

== ENCOUNTER → 2023-02-04 | Outpatient (CLI) | payer OTHER, SELFPAY ==
[2023-02-09 21:07] LABS: Calprotectin, Stool 1120 ug/g (0-120)
== END | disposition home or self-care (01) ==
LOC: LABSPEC 09:49
PROVIDERS: PCP Family Medicine; Referring Provider Internal Medicine Gastroenterology; Visit Provider Internal Medicine Gastroenterology
DX: K50.90 Crohn's disease, unspecified, without complications (principal)
CPT/HCPCS: 83630; 83993

== ENCOUNTER → 2023-06-21 | Outpatient (CLI) | payer OTHER, SELFPAY ==
[2023-06-21 10:10] LABS: Absolute Lymphocyte Count 1.68 X10^3/uL (0.83-4.51); Absolute Neutrophil Count 3.2 X10^3/uL (2.0-7.7); Basophil# 0.05 X10^3/uL; Basophil% 0.9 % (0-1); Eosinophil# 0.14 X10^3/uL; Eosinophils% 2.6 % (0-5); Hematocrit 42.4 % (40-54); Lymphocyte # 1.68 X10^3/ul (0.83-4.51); Lymphocyte % 30.8 % (19-41); Mean Platelet Vol. 10.3 fl (6.2-12.0); Monocyte# 0.35 X10^3/uL; Monocyte% 6.4 % (0-10); NRBC Flagged by Analyzer 0 % (0-5); Neutrophil # 3.23 X10^3/uL (2.7-7.7); Neutrophil % 59.1 % (47-70); Platelet Count 252 K/mm3 (150-450); RBC Distribution Width CV 13.3 % (11.6-14.6); RBC Distribution Width SD 44.4 fl (35.1-43.9); Red Blood Count 4.66 M/mm3 (4.6-6.2); White Blood Count 5.5 K/mm3 (4.4-11.0)
[2023-06-21 10:50] LABS: AST(SGOT) 20 U/L (15-37); Alanine Aminotransfer ALT/SGPT 48 U/L (16-61); Alkaline Phosphatase 75 U/L (45-117); Anion Gap 5 (5-15); BUN 20 mg/dL (7-18); BUN/Creat Ratio 19.6 RATIO (10-20); Calcium,Total 9.3 mg/dL (8.5-10.1); Chloride 105 mmol/L (98-107); Cholesterol 140 mg/dL (200); Creatinine, Serum 1.02 mg/dL (0.70-1.30); EST Glomerular Filtration Rate 82 mL/min (>60); Est Glom Filt Rate - Afr Amer 99 mL/min (>60); Globulin 3.9 g/dL (2.2-4.2); Glucose 98 mg/dL (74-106); High Density Lipoprotein 36 mg/dL; Potassium 4.2 mmol/L (3.5-5.1); Protein, Total 7.9 g/dL (6.4-8.2); Sodium Level 139 mmol/L (136-145); Triglycerides 270 mg/dL; Very Low Density Lipoprotein 54 mg/dL (5-40)
[2023-06-21 11:03] LABS: Hemoglobin A1c 5.3 % (3.8-5.6)
== END | disposition home or self-care (01) ==
LOC: MFPLAB 08:21
PROVIDERS: PCP Family Medicine; Visit Provider Family Medicine
DX: E55.9 Vitamin D deficiency, unspecified (principal); E11.69 Type 2 diabetes mellitus with other specified complication
CPT/HCPCS: 36415; 80053; 80061; 82306; 83036; 85025

== ENCOUNTER → 2023-08-06 | Outpatient (CLI) | payer OTHER, SELFPAY ==
--- NOTE | 2023-08-06 12:43 | ECHOD_ITS ---
Reason For Study: BBB (unspecific) & intraventricular block (nonspecified) Procedure This was a 2D Doppler, Color Flow transthoracic echocardiogram. Exam performed in department. Left Ventricle Normal LV size. Left ventricular systolic function is normal. The estimated ejection fraction is 60 %. Stage 1 diastolic dysfunction. No regional wall motion abnormalities noted. Right Ventricle Normal RV size. Normal systolic function. Atria Normal left atrium. Normal right atrium. Mitral Valve Normal mitral valve. Tricuspid Valve Normal tricuspid valve. Aortic Valve Trisinus/trileaflet aortic valve. Pulmonic Valve The pulmonic valve is not well visualized. Great Vessels Normal aortic root. Pericardium/Pleural No pericardial effusion. MMode/2D Measurements & Calculations LVIDd: 4.5 cm IVSd: 1.2 cm Ao root diam: 3.1 cm LVIDs: 3.1 cm LVPWd: 1.0 cm RVDd: 2.9 cm FS: 31.0 % LAV(MOD-bp): 55.0 ml LVAd ap4: 39.6 cm2 LVAd ap2: 31.1 cm2 LAV(MOD-bp) Indexed: 24.3 ml/m2 LVLd ap4: 9.4 cm LVLd ap2: 8.1 cm LAV(MOD-sp2): 50.0 ml EDV(MOD-sp4): 139.6 ml EDV(MOD-sp2): 99.9 ml LAV(MOD-sp4): 54.9 ml EDV(sp4-el): 141.1 ml EDV(sp2-el): 101.4 ml LVAs ap4: 22.9 cm2 LVAs ap2: 18.3 cm2 LVLs ap4: 7.7 cm LVLs ap2: 7.0 cm ESV(MOD-sp4): 62.2 ml ESV(MOD-sp2): 41.3 ml ESV(sp4-el): 57.5 ml ESV(sp2-el): 40.4 ml EF(MOD-sp4): 55.5 % EF(MOD-sp2): 58.7 % EF(sp4-el): 59.2 % SV(MOD-sp4): 77.4 ml SV(MOD-sp2): 58.6 ml SV(sp4-el): 83.6 ml LA dimension(2D): 4.0 cm LA A4 area: 19.5 cm2 RA A4 area: 13.8 cm2 TAPSE: 2.3 cm Time Measurements MV dec time: 0.19 sec Doppler Measurements & Calculations MV E max wei: 81.8 cm/sec Ao V2 max: 130.2 cm/sec LV V1 max: 120.1 cm/sec MV A max wei: 102.5 cm/sec Ao max P.8 mmHg LV V1 max P.8 mmHg MV E/A: 0.80 Ao V2 mean: 97.8 cm/sec LV V1 mean P.2 mmHg Ao mean P.1 mmHg LV V1 mean: 85.0 cm/sec Ao V2 VTI: 21.8 cm LV V1 VTI: 19.5 cm AV (velocity ratio): 0.90 PA V2 max: 128.2 cm/sec PA V2 mean: 95.4 cm/sec ECHO/Echo Complete Interpretation Summary Normal LV size. Left ventricular systolic function is normal. The estimated ejection fraction is 60 %. Stage 1 diastolic dysfunction. Ordering Physician: Guilherme Smith Referring Physician: Guilherme Smith Performed By: Leslie Trujillo RDCS, RVT
== END | disposition home or self-care (01) ==
LOC: CVS 12:42
PROVIDERS: PCP Family Medicine; Referring Provider Family Medicine; Visit Provider Family Medicine
DX: I45.4 Nonspecific intraventricular block (principal)
CPT/HCPCS: 93306

== ENCOUNTER → 2023-10-02 | Outpatient (CLI) | payer OTHER, SELFPAY ==
[2023-10-02 12:34] LABS: Absolute Lymphocyte Count 1.75 X10^3/uL (0.83-4.51); Absolute Neutrophil Count 5.1 X10^3/uL (2.0-7.7); Basophil# 0.04 X10^3/uL; Basophil% 0.5 % (0-1); Eosinophil# 0.11 X10^3/uL; Eosinophils% 1.5 % (0-5); Hemoglobin 14.4 g/dL (13.0-16.5); Lymphocyte # 1.75 X10^3/ul (0.83-4.51); Lymphocyte % 23.2 % (19-41); Mean Corp Hgb Conc 34.3 g/dL (32-36); Mean Corpuscular Hgb 30.2 pg (27.0-32.0); Mean Corpuscular Volume 88.1 fL (80-94); Mean Platelet Vol. 10.4 fl (6.2-12.0); Monocyte# 0.56 X10^3/uL; Monocyte% 7.4 % (0-10); NRBC Flagged by Analyzer 0 % (0-5); Neutrophil # 5.07 X10^3/uL (2.7-7.7); Neutrophil % 67.1 % (47-70); Platelet Count 228 K/mm3 (150-450); RBC Distribution Width CV 13.3 % (11.6-14.6); RBC Distribution Width SD 43.3 fl (35.1-43.9); Red Blood Count 4.77 M/mm3 (4.6-6.2); White Blood Count 7.6 K/mm3 (4.4-11.0)
[2023-10-02 12:53] LABS: Erythrocyte Sedimentation Rate 13 mm/hr (0-20)
[2023-10-02 13:02] LABS: Hemoglobin A1c 5.8 % (3.8-5.6); Vitamin D,25 Hydroxy 40.3 ng/mL
[2023-10-02 13:06] LABS: AST(SGOT) 34 U/L (15-37); Alanine Aminotransfer ALT/SGPT 61 U/L (16-61); Alkaline Phosphatase 81 U/L (45-117); Anion Gap 7 (5-15); BUN 18 mg/dL (7-18); BUN/Creat Ratio 18.6 RATIO (10-20); CRP 6.66 mg/L (0.0-3.0); Calcium,Total 9.3 mg/dL (8.5-10.1); Chloride 103 mmol/L (98-107); Creatinine, Serum 0.97 mg/dL (0.70-1.30); EST Glomerular Filtration Rate 87 mL/min (>60); Est Glom Filt Rate - Afr Amer 105 mL/min (>60); Globulin 4.1 g/dL (2.2-4.2); Glucose 106 mg/dL (74-106); LDH 163 U/L (87-241); Magnesium 1.8 mg/dL (1.6-2.6); Potassium 3.9 mmol/L (3.5-5.1); Protein, Total 8.1 g/dL (6.4-8.2); Sodium Level 138 mmol/L (136-145)
[2023-10-02 13:31] LABS: Cholesterol 153 mg/dL (200); High Density Lipoprotein 36 mg/dL; Triglycerides 413 mg/dL
== END | disposition home or self-care (01) ==
PROVIDERS: PCP Family Medicine; Referring Provider Internal Medicine Gastroenterology; Visit Provider Internal Medicine Gastroenterology
DX: K50.90 Crohn's disease, unspecified, without complications (principal); E11.9 Type 2 diabetes mellitus without complications; E55.9 Vitamin D deficiency, unspecified
CPT/HCPCS: 36415; 80053; 80061; 82306; 82653; 82705; 83036; 83615; 83735; 85025; 85652; 86140; 86480; 87177; 87209; 87329

== ENCOUNTER → 2023-10-07 | Outpatient (CLI) | payer OTHER, SELFPAY ==
--- OUTSIDE RECORDS SUMMARY | 2023-10-07 12:10 | XMS RPT_ITS | CCD ---
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 Name Role Phone Mihir Wyatt MD Primary Care Provider OVIDIO JARQUIN Attending Unavailable MIHIR WYATT Primary Care Unavailable OVIDIO JARQUIN Attending Unavailable MIHIR WYATT Primary Care Unavailable Problems Problem Classification Problem Date Documented Da te Episodic/Chronic Administrative/social admission (2 sources) Patient encounter status; Translations: [Dietary counseling and surveillance] Episodic Diabetes mellitus without complication (2 sources) Type 2 diabetes mellitus without complication; Translations: [Type 2 diabetes mellitus without complications] Chronic Other nutritional; endocrine; and metabolic disorders (2 sources) Obese class I; Translations: [Obesity, unspecified] Chronic Vital Signs Date Time Vital Sign Value Performing Clinician Zoila moss 09-10-2022 14:35-0500 Body height 182.[address] [facility] 09-10-2022 14:35-0500 Body weight 104.[address] [facility] 07-30-2022 10:46-0500 Body height 182.[address] [facility] 07-30-2022 10:46-0500 Body weight 107.[address] [facility] Encounters Encounter Date Encounter Type Care Provider Facility Start: 09-10-2022 End: 09-10-2022 ambulatory OVIDIO JARQUIN Facility:[facility] Start: 09-10-2022 End: 09-10-[address] Nutrition Therapy Plan of Treatment Date Care Activity Detail Author Start: 04-26-2025 Urine microalbumin profile DTA P,TDAP,TD (2 - Td or Tdap) [facility] Start: 08-19-2022 DEPRESSION ASSESSMENT DEPRESSION ASS ESSMENT [facility] Start: 08-19-2021 DEPRESSION ASSESSMENT DEPRESSION ASS ESSMENT [facility] Start: 2018 COLOGUARD (FIT-DNA) COLOGUARD (FIT-D NA) [facility] Start: 2018 Colonoscopy COLONOSCOPY [facility] Start: 2018 COLORECTAL CANCER SCREENING COLORECTAL CANCER SCREENING [facility] Start: [address] COLONOGRAPHY [facility] Start: 2018 DIABETES SCREEN DIABETES SCREEN [facility] Start: 2018 FECAL OCCULT BLOOD FECAL OCCULT BLOO D [facility] Start: 2018 SIGMOIDOSCOPY SIGMOIDOSCOPY [facility] Start: 2008 LIPID SCREEN LIPID SCREEN [facility] Start: 1991 HEPATITIS C SCREENING HEPATITIS C SC REENING [facility] Start: 1991 HIV SCREENING HIV SCREENING [facility] Start: 1973 COVID-19 VACCINE (#1) COVID-19 VACCI NE (#1) [facility] Start: 1973 HEPATITIS B (1 of 3 - 3-dose series) HEPATITIS B (1 of 3 - 3-dose series) [facility] Immunizations Immunization Date Immunization Notes Care Provider Machelle hendrickson 04-26-2015 tetanus toxoid, redu obi diphtheria toxoid, and acellular pertussis vaccine, adsorbed Ovidio Jarquin RD [facility] Payers Date Payer Category Payer Private Health Insurance [employer] A ETNA CHOICE POS II [id number] 2013-Present [phone] [address] [place] [address] POS [id number] 2013 Private Health Insurance [id number] Social History Date Type Detail Facility Start: 12-31-2017 Tobacco smoking stat us NHIS Ex-smoker [facility] End: 09-02-2007 History of tobacco use Current smoker [facility] End: 09-02-2007 History of tobacco use Cigarette Smoker [facility] Start: 12-31-2017 Tobacco use and exposure Smoke less tobacco non-user [facility] Start: 12-31-2017 Alcohol intake Not Asked José Luis cohen [facility] Start: 1975 [facility]igned At [facility] note 09-10-2022 Note Date & Type Note Facility 09-10-2022 Note HNO ID: [id number] Author: Ovidio Jarquin RD Service: ? Author Type: Registered Dietitian Type: Progress Notes Filed: 09/14/2022 8:29 AM Note Text: Nutritional Therapy Re-Assessment Nutrition Diagnosis: Behavioral-Environmental: Food and nutrition related knowledge deficit, related to, lack of prior exposure to information , as evidenced by new medical diagnosis RECOMMENDED MALNUTRITION DIAGNOSIS: NO MALNUTRITION IDENTIFIED NUTRITION CARE PLAN: Nutrition Intervention 09/10/2022: modify type and amount of food or beverage Include protien and fiber in each meal Watch for added sugars in foods Work on adding in exercise All meals and snacks at the dining room table only Preferably evening snack Preferably lean proteins only Nutrition Monitoring AND Evaluation: weight loss and labs in target range Need for Follow up: 4-6 weeks PROGRESS: Interval History: following as relates to new diagnosis diabetes, on Trulicity for control. Desires weight loss. Crohn's seems stable. Is eating three meals and three snacks, generally healthy choices. Has lost 5 lbs since last visit. Has not yet added exercise . Nutrition Intervention 07/30/2022: modify type and amount of food or beverage Aim for lower carb diet of 30-45 grams carb per meal Keep carbs whole grain, high fiber Choose lean protein only: chicken, turkey, fish, lean beef when having - limit red meat to two x per week Follow the Plate Method at lunch and dinner: Use a 9 plate - 1/2 plate vegetables-non starchy such as green beans, greens, broccoli, cauliflower, etc (1 serving of fruit optional outside of plate) - 1/4 plate lean protein-primarily chicken, turkey fish, lean red 1-2 x per week at most (size of palm) - 1/4 plate whole grain or starchy vegetable such as corn, peas, potatoes, beans (size of fist, 1 cup) All meals and snacks at the dinner table; minimize distractions, no TV while eating. Make meals last at least 20 min, chew each bite of food 20 x per bite.Portion out all foods, never eat out of container. Become more mindful of meal: Enjoy flavors, textures etc. Use hunger/fullness scale. If able no evening snack Increase exercise ,aim for at least 30 min (3 days during the week and on two weekend days). Actions to implement interventions: Whole grain Lean protiesn Diet History: Breakfast - raisin bran/almond milk; oatmeal bites or couple hard boiled eggs; oatmeal; weekends egg/daley; coffee with sf creamer or just half n half Snack - nuts, or jerky Lunch - if out half beef n broccoli; chipotle haf a bowl; occ sandwich on WG bread, or soup; water Snack - skinny pop, few dried tomas, couple slices cheese, apple, celery, pnb Dinner - fish, broccoli, brown rice and quinoa, chicken and beef ,chick pea pasta; riced puffs or caulifllower, no bun Snack - dried mangos, grapefruit cup, limited ice cream but did have some last night Beverages - water, coffee, zero sports water, Spin Drift lopez Alcohol - every Saturday 4-5 lite beer; or tecquilla and saosa Vitamins/Supplements - D, complex Avoiding potatoes Activity: Activities of Daily Living: sporadic Additional Activity: Lightly active (Light exercise: planned physical activity 1-3 days/week) Will join the Y, plans on three days per week Anthropometrics: Height: Last 1 Encounter Ht Readings: Date: Ht: 09/10/2022 182.9 cm (6') Current weight: Last 1 Encounter Wt Readings: Date: Wt: 09/10/2022 104.8 kg (231 lb) Body mass index is 31.33 kg/m?. Resting Metabolic Rate: 1953 Malnutrition Screening Significant unintentional weight loss? No Eating less than 75% of usual intake for more than 2 weeks? No Potential Signs of Inflammation: no identifiable sources Nutritional status: Education Materials Provided: None this visit READINESS TO LEARN Cognitive ability: Alert and oriented Motivation to learn: Interested Family support: Unable to assess - Family not present Instruction provided to: Patient Patient learns best by: Individual Instruction Factors affecting learning: None Physical limitations affecting learning: None Likelihood of Adherence: Moderate Referred/Supervised by: Self/Aliyah MNT Billing Type: Re-assess/15 min 2 units SIGNATURE: Ovidio Jarquin RD PATIENT NAME: Rose Hannon DATE: September 10, 2022 TIME: 2:36 PM [facility] Clinical Note 09-10-2022 Note Date & Type Note Facility 09-10-2022 Note Education (NUTRWS) ROSE HANNON ([id number]) 1975 M Date Time Provider Department 09/10/22 2:30 PM OVIDIO JARQUIN Reason for Visit: Reassessment [674] Patient Education [91] Primary Visit Diagnosis:Controlled type 2 diabetes mellitus without complication, without long-term current use of insulin (HCC) [E11.9] Other Visit Diagnoses:Obesity, Class I, BMI 30-34.9 [E66.9] Dietary counseling [Z71.3] During your visit today, we recorded the following information about you: Weight Height 104.8 kg 1.829 m Allergies As of Date: 09/10/2022 (No Known Allergies) Date Reviewed: 09/10/2022 Reviewed by: Ovidio Jarquin RD - Fully Assessed Encounter Status:Closed by OVIDIO JARQUIN on 09/14/22 [facility] Instructions 09-10-2022 Patient Instructions Note Date & Type Note Facility 09-10-[address] - 09/10/2022 2:58 PM EST Include protien and fiber in each meal Watch for added sugars in foods Work on adding in exercise All meals and snacks at the dining room table only Preferably evening snack Preferably lean proteins only documented in this encounter [facility] History of Present illness Narrative 09-10-2022 Ovidio Jarquin, WIL - 09/10/2022 2:33 PM EST Note Date & Type Note Facility 09-10-2022 History of Presen t illness Narrative Nutritional Therapy Re-Assessment Nutrition Diagnosis: Behavioral-Environmental: Food and nutrition related knowledge deficit, related to, lack of prior exposure to information , as evidenced by new medical diagnosis RECOMMENDED MALNUTRITION DIAGNOSIS: NO MALNUTRITION IDENTIFIED NUTRITION CARE PLAN: Nutrition Intervention 09/10/2022: modify type and amount of food or beverage Include protien and fiber in each meal Watch for added sugars in foods Work on adding in exercise All meals and snacks at the dining room table only Preferably evening snack Preferably lean proteins only Nutrition Monitoring & Evaluation: weight loss and labs in target range Need for Follow up: 4-6 weeks PROGRESS: Interval History: following as relates to new diagnosis diabetes, on Trulicity for control. Desires weight loss. Crohn's seems stable. Is eating three meals and three snacks, generally healthy choices. Has lost 5 lbs since last visit. Has not yet added exercise . Nutrition Intervention 07/30/2022: modify type and amount of food or beverage Aim for lower carb diet of 30-45 grams carb per meal Keep carbs whole grain, high fiber Choose lean protein only: chicken, turkey, fish, lean beef when having - limit red meat to two x per week Follow the Plate Method at lunch and dinner: Use a 9 plate - 1/2 plate vegetables-non starchy such as green beans, greens, broccoli, cauliflower, etc (1 serving of fruit optional outside of plate) - 1/4 plate lean protein-primarily chicken, turkey fish, lean red 1-2 x per week at most (size of palm) - 1/4 plate whole grain or starchy vegetable such as corn, peas, potatoes, beans (size of fist, 1 cup) All meals and snacks at the dinner table; minimize distractions, no TV while eating. Make meals last at least 20 min, chew each bite of food 20 x per bite.Portion out all foods, never eat out of container. Become more mindful of meal: Enjoy flavors, textures etc. Use hunger/fullness scale. If able no evening snack Increase exercise ,aim for at least 30 min (3 days during the week and on two weekend days). Actions to implement interventions: Whole grain Lean protiesn Diet History: Breakfast - raisin bran/almond milk; oatmeal bites or couple hard boiled eggs; oatmeal; weekends egg/daley; coffee with sf creamer or just half n half Snack - nuts, or jerky Lunch - if out half beef n broccoli; chipotle haf a bowl; occ sandwich on WG bread, or soup; water Snack - skinny pop, few dried tomas, couple slices cheese, apple, celery, pnb Dinner - fish, broccoli, brown rice and quinoa, chicken and beef ,chick pea pasta; riced puffs or caulifllower, no bun Snack - dried mangos, grapefruit cup, limited ice cream but did have some last night Beverages - water, coffee, zero sports water, Spin Drift lopez Alcohol - every Saturday 4-5 lite beer; or tecquilla and saosa Vitamins/Supplements - D, complex Avoiding potatoes Activity: Activities of Daily Living: sporadic Additional Activity: Lightly active (Light exercise: planned physical activity 1-3 days/week) Will join the Y, plans on three days per week Anthropometrics: Height: Last 1 Encounter Ht Readings: Date: Ht: 09/10/2022 182.9 cm (6') Current weight: Last 1 Encounter Wt Readings: Date: Wt: 09/10/2022 104.8 kg (231 lb) Body mass index is 31.33 kg/m . Resting Metabolic Rate: 1953 Malnutrition Screening Significant unintentional weight loss? No Eating less than 75% of usual intake for more than 2 weeks? No Potential Signs of Inflammation: no identifiable sources Nutritional status: Education Materials Provided: None this visit READINESS TO LEARN Cognitive ability: Alert and oriented Motivation to learn: Interested Family support: Unable to assess - Family not present Instruction provided to: Patient Patient learns best by: Individual Instruction Factors affecting learning: None Physical limitations affecting learning: None Likelihood of Adherence: Moderate Referred/Supervised by: Self/Aliyah MNT Billing Type: Re-assess/15 min 2 units SIGNATURE: Ovidio Jarquin RD PATIENT NAME: Rose Hnanon DATE: September 10, 2022 TIME: 2:36 PM documented in this encounter [facility] Clinical Note 07-30-2022 Note Date & Type Note Facility 07-30-2022 Note Education (NUTRWS) 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 (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) 1975 M Date Time Provider Department 07/30/22 11:00 AM OVIDIO JARQUIN Reason for Visit: Assessment [673] Patient Education [91] Primary Visit Diagnosis:Controlled type 2 diabetes mellitus without complication, without long-term current use of insulin (HCC) [E11.9] Other Visit Diagnoses:Obesity, Class I, BMI 30-34.9 [E66.9] Dietary counseling [Z71.3] During your visit today, we recorded the following information about you: Weight Height 107 kg 1.829 m Allergies As of Date: 07/30/2022 (No Known Allergies) Date Reviewed: 12/31/2017 Reviewed by: Mallory Riggins LPN - Fully Assessed Encounter Status:Closed by OVIDIO JARQUIN on 07/30/22 [facility] Progress note 07-30-2022 Note Date & Type Note Facility 07-30-2022 Note HNO ID: [id number] Author: Ovidio Jarquin RD Service: ? Author Type: Registered Dietitian Type: Progress Notes Filed: 07/30/2022 12:55 PM Note Text: Nutrition Therapy Initial Assessment Nutrition Diagnosis: Behavioral-Environmental: Food and nutrition related knowledge deficit, related to, lack of prior exposure to information , as evidenced by new medical diagnosis. RECOMMENDED MALNUTRITION DIAGNOSIS: NO MALNUTRITION IDENTIFIED NUTRITION CARE PLAN Nutrition Intervention 07/30/2022: modify type and amount of food or beverage Aim for lower carb diet of 30-45 grams carb per meal Keep carbs whole grain, high fiber Choose lean protein only: chicken, turkey, fish, lean beef when having - limit red meat to two x per week Follow the Plate Method at lunch and dinner: Use a 9 plate - 1/2 plate vegetables-non starchy such as green beans, greens, broccoli, cauliflower, etc (1 serving of fruit optional outside of plate) - 1/4 plate lean protein-primarily chicken, turkey fish, lean red 1-2 x per week at most (size of palm) - 1/4 plate whole grain or starchy vegetable such as corn, peas, potatoes, beans (size of fist, 1 cup) All meals and snacks at the dinner table; minimize distractions, no TV while eating. Make meals last at least 20 min, chew each bite of food 20 x per bite.Portion out all foods, never eat out of container. Become more mindful of meal: Enjoy flavors, textures etc. Use hunger/fullness scale. If able no evening snack If able no evenign sanck Increase exercise ,aim for at least 30 min (3 days during the week and on two weekend days). Nutrition Monitoring AND Evaluation: weightloss and labs in target range Need for Follow up: 4-6 weeks Patient presents for initial MNT as relates to new diagnosis diabetes, recent diagnosis Crohn's disease. Now on Trulicity for control, last HgA1c 6.7. Goal for weight loss, Currently aiming for very low carb diet. Intake noted for eating three meals and three snacks, snacks likely often in absence of hunger, especially in the evening .Beverages mostly appropriate . Has sporadic activity at work, no regular exercise. Patient's symptoms are: None Diet History: Breakfast - cereal (Healthy balance) with almond milk ;yogurt and egg or yogurt and oatmeal Snack - couple hard boiled eggs, occ some nuts Lunch - chipotle small half portion. Soup, no bread Snack - pop corn, cheese, occ salami or trail bologne, nuts Dinner - 6-8 p.m. chicken, fish, rice and 1-2 veg (marisela, br sprouts, gr beans, occ corn) Snack - dried mangos, grapefruit, last night ice cream Beverages - water ,propel, coffee with cream, tea, green with honey Alcohol- socially, 4-5 lite beer or Saturday or Saturday, now ETOH and soda Vitamins/Supplements - no To bed at 10 Activity: Activities of Daily Living: sporadic Additional Activity: Sedentary (Little or no exercise: <1x/week) Anthropometrics: Height: Last 1 Encounter Ht Readings: Date: Ht: 07/30/2022 182.9 cm (6') Current weight: Last 1 Encounter Wt Readings: Date: Wt: 07/30/2022 107 kg (236 lb) Body mass index is 32.01 kg/m?. Resting Metabolic Rate: 1975 Malnutrition Screening Significant unintentional weight loss? No Eating less than 75% of usual intake for more than 2 weeks? No Potential Signs of Inflammation: no identifiable sources Education Materials Provided: Healthy You - Planning Healthy Meals (blue cover) READINESS TO LEARN Cognitive ability: Alert and oriented Motivation to learn: Interested Family support: Unable to assess - Family not present Instruction provided to: Patient Patient learns best by: Individual Instruction Factors affecting learning: None Physical limitations affecting learning: None Referred/Supervised by: Self/Aliyah LAKE Billing Type: Initial Assess/15 min 3 units SIGNATURE: Ovidio Jarquin RD PATIENT NAME: Rose Hannon DATE: July 30, 2022 TIME: 10:49 AM [facility] Instructions 07-30-2022 Patient Instructions Note Date & Type Note Facility 07-30-[address] - 07/30/2022 11:24 AM EST Aim for lower carb diet of 30-45 grams carb PER MEAL Keep carbs whole grain, high fiber Choose lean protein only: chicken, turkey, fish, lean beef when having - limit red meat to two x per week Follow the Plate Method at lunch and dinner: Use a 9 plate - 1/2 plate vegetables-non starchy such as green beans, greens, broccoli, cauliflower, etc (1 serving of fruit optional outside of plate) - 1/4 plate lean protein-primarily chicken, turkey fish, lean red 1-2 x per week at most (size of palm) - 1/4 plate whole grain or starchy vegetable such as corn, peas, potatoes, beans (size of fist, 1 cup) All meals and snacks at the dinner table; minimize distractions, no TV while eating. Make meals last at least 20 min, chew each bite of food 20 x per bite.Portion out all foods, never eat out of container. Become more mindful of meal: Enjoy flavors, textures etc. Use hunger/fullness scale. If able no evening snack If able no evenign sanck Increase exercise ,aim for at least 30 min (3 days during the week and on two weekend day documented in this encounter [facility] History of Present illness Narrative 07-30-[address] - 07/30/2022 10:46 AM EST Note Date & Type Note Facility 07-30-2022 History of Presen t illness Narrative Nutrition Therapy Initial Assessment Nutrition Diagnosis: Behavioral-Environmental: Food and nutrition related knowledge deficit, related to, lack of prior exposure to information , as evidenced by new medical diagnosis. RECOMMENDED MALNUTRITION DIAGNOSIS: NO MALNUTRITION IDENTIFIED NUTRITION CARE PLAN Nutrition Intervention 07/30/2022: modify type and amount of food or beverage Aim for lower carb diet of 30-45 grams carb per meal Keep carbs whole grain, high fiber Choose lean protein only: chicken, turkey, fish, lean beef when having - limit red meat to two x per week Follow the Plate Method at lunch and dinner: Use a 9 plate - 1/2 plate vegetables-non starchy such as green beans, greens, broccoli, cauliflower, etc (1 serving of fruit optional outside of plate) - 1/4 plate lean protein-primarily chicken, turkey fish, lean red 1-2 x per week at most (size of palm) - 1/4 plate whole grain or starchy vegetable such as corn, peas, potatoes, beans (size of fist, 1 cup) All meals and snacks at the dinner table; minimize distractions, no TV while eating. Make meals last at least 20 min, chew each bite of food 20 x per bite.Portion out all foods, never eat out of container. Become more mindful of meal: Enjoy flavors, textures etc. Use hunger/fullness scale. If able no evening snack If able no evenign sanck Increase exercise ,aim for at least 30 min (3 days during the week and on two weekend days). Nutrition Monitoring & Evaluation: weightloss and labs in target range Need for Follow up: 4-6 weeks Patient presents for initial MNT as relates to new diagnosis diabetes, recent diagnosis Crohn's disease. Now on Trulicity for control, last HgA1c 6.7. Goal for weight loss, Currently aiming for very low carb diet. Intake noted for eating three meals and three snacks, snacks likely often in absence of hunger, especially in the evening .Beverages mostly appropriate . Has sporadic activity at work, no regular exercise. Patient's symptoms are: None Diet History: Breakfast - cereal (Healthy balance) with almond milk ;yogurt and egg or yogurt and oatmeal Snack - couple hard boiled eggs, occ some nuts Lunch - chipotle small half portion. Soup, no bread Snack - pop corn, cheese, occ salami or trail bologne, nuts Dinner - 6-8 p.m. chicken, fish, rice and 1-2 veg (marisela, br sprouts, gr beans, occ corn) Snack - dried mangos, grapefruit, last night ice cream Beverages - water ,propel, coffee with cream, tea, green with honey Alcohol- socially, 4-5 lite beer or Saturday or Saturday, now ETOH and soda Vitamins/Supplements - no To bed at 10 Activity: Activities of Daily Living: sporadic Additional Activity: Sedentary (Little or no exercise: <1x/week) Anthropometrics: Height: Last 1 Encounter Ht Readings: Date: Ht: 07/30/2022 182.9 cm (6') Current weight: Last 1 Encounter Wt Readings: Date: Wt: 07/30/2022 107 kg (236 lb) Body mass index is 32.01 kg/m . Resting Metabolic Rate: 1976 Malnutrition Screening Significant unintentional weight loss? No Eating less than 75% of usual intake for more than 2 weeks? No Potential Signs of Inflammation: no identifiable sources Education Materials Provided: Healthy You - Planning Healthy Meals (blue cover) READINESS TO LEARN Cognitive ability: Alert and oriented Motivation to learn: Interested Family support: Unable to assess - Family not present Instruction provided to: Patient Patient learns best by: Individual Instruction Factors affecting learning: None Physical limitations affecting learning: None Referred/Supervised by: Self/Aliyah MNT Billing Type: Initial Assess/15 min 3 units SIGNATURE: Ovidio Jarquin RD PATIENT NAME: Rose Hannon DATE: July 30, 2022 TIME: 10:49 AM documented in this encounter [facility] Evaluation note Note Date & Type Note Facility documented in this encounter [facility] Summary Purpose Family History No Family History Records Found Advance Directives No Advanced Directives Records Found Additional Source Comments Source Comments (unrecognize d section and content) In the event this informatio n is protected by the Federal Confidentiality of Alcohol and Drug Abuse Patient Records regulations: The Federal rules restrict any use of the information to criminally investigate or prosecute any alcohol or drug abuse patient.[facility] this information is protected by the Federal Confidentiality of Alcohol and Drug Abuse Patient Records regulations: The Federal rules restrict any use of the information to criminally investigate or prosecute any alcohol or drug abuse patient.[facility] Reason for Visit (unrecogniz ed section and content) Reason Comments Reassessment Patient Education Care Teams (unrecognized sec tion and content) (unrecognized sect ion and content) No Status Records Found INFORMATION SOURCE (unrecogn ized section and content) FOR RECORDS PERTAINING TO PATIENTS WHO ARE OR HAVE BEEN ENROLLED IN A CHEMICAL DEPENDENCY/SUBSTANCEABUSE PROGRAM, SOME INFORMATION MAY BE OMITTED. This clinical summary was aggregated from multiple sources. Caution should be exercised in using it in the provision of clinical care. This summary normalizes information from multiple sources, and as a consequence, information in this document may materially change the coding, format and clinical context of patient data. In addition, data may be omitted in some cases. CLINICAL DECISIONS SHOULD BE BASED ON THE PRIMARY CLINICAL RECORDS. [employer] provides no warranty or guarantee of the accuracy or completeness of information in this document.
[2023-10-10 22:06] LABS: Calprotectin, Stool 660 ug/g (0-120)
== END | disposition home or self-care (01) ==
LOC: LABSPEC 11:49
PROVIDERS: PCP Family Medicine; Referring Provider Internal Medicine Gastroenterology; Visit Provider Internal Medicine Gastroenterology
DX: K50.90 Crohn's disease, unspecified, without complications (principal)
CPT/HCPCS: 83630; 83993; 87493; 87506

== ENCOUNTER → 2023-10-21 | Outpatient (CLI) | payer OTHER, SELFPAY ==
--- OUTSIDE RECORDS SUMMARY | 2023-10-21 08:02 | XMS RPT_ITS | CCD ---
Author Name Unknown Address [address] [facility] [id number] [place] [address] Organization [facility] Care Team Providers Care Asphalt Dauber Name Role Phone Mihir Wyatt MD Primary [...] 09-10-2022 14:35-0500 Body height 182.[address] [facility] 09-10-2022 14:35-0500 Body weight 104.[address] [facility] 07-30-2022 10:46-0500 Body height 182.[address] [facility] 07-30-2022 10:46-0500 Body weight 107.[address] [facility] Encounters Encounter Date Encounter Type Care Provider Facility Start: 09-10-2022 End: 09-10-2022 ambulatory OVIDIO JARQUIN Facility:[facility] Start: 09-10-2022 End: 09-10-[address] Nutrition Therapy Plan of Treatment Date Care Activity Detail Author Start: 04-26-2025 Urine microalbumin profile DTA P,TDAP,TD (2 - Td or Tdap) [facility] Start: 08-19-2022 DEPRESSION ASSESSMENT DEPRESSION ASS ESSMENT [facility] Start: 08-19-2021 DEPRESSION ASSESSMENT DEPRESSION ASS ESSMENT [facility] Start: 2018 COLOGUARD (FIT-DNA) COLOGUARD (FIT-D NA) [facility] Start: 2018 Colonoscopy COLONOSCOPY [facility] Start: 2018 COLORECTAL CANCER SCREENING COLORECTAL CANCER SCREENING [facility] Start: [address] COLONOGRAPHY [facility] Start: 2018 DIABETES SCREEN DIABETES SCREEN [facility] Start: 2018 FECAL OCCULT BLOOD FECAL OCCULT BLOO D [facility] Start: 2018 SIGMOIDOSCOPY SIGMOIDOSCOPY [facility] Start: 2008 LIPID SCREEN LIPID SCREEN [facility] Start: 1991 HEPATITIS C SCREENING HEPATITIS C SC REENING [facility] Start: 1991 HIV SCREENING HIV SCREENING [facility] Start: 1973 COVID-19 VACCINE (#1) COVID-19 VACCI NE (#1) [facility] Start: 1973 HEPATITIS B (1 of 3 - 3-dose series) HEPATITIS B (1 of 3 - 3-dose series) [facility] Immunizations Immunization Date Immunization Notes Care Provider Machelle hendrickson 04-26-2015 tetanus toxoid, redu obi diphtheria toxoid, and acellular pertussis vaccine, adsorbed Ovidio Jarquin RD [facility] Payers Date Payer Category Payer Private Health Insurance [employer] A ETNA CHOICE POS II [id number] 2013-Present [phone] [address] [place] [address] POS [id number] 2013 Private Health Insurance [id number] Social History Date Type Detail Facility Start: 12-31-2017 Tobacco smoking stat us NHIS Ex-smoker [facility] End: 09-02-2007 History of tobacco use Current smoker [facility] End: 09-02-2007 History of tobacco use Cigarette Smoker [facility] Start: 12-31-2017 Tobacco use and exposure Smoke less tobacco non-user [facility] Start: 12-31-2017 Alcohol intake Not Asked José Luis cohen [facility] Start: 1975 Sex Assigned At Not on file [facility] Progress note 09-10-2022 Note Date & Type Note Facility 09-10-2022 Note HNO ID: [id number] Author: Ovidio Jarquin RD Service: ? Author [...] DATE: September 10, 2022 TIME: 2:36 PM [facility] Clinical Note 09-10-2022 Note Date & Type Note Facility 09-10-2022 Note Education (NUTRWS) ROSE HANNON ([id number]) 1975 M Date Time Provider Department 09/10/22 [...] Encounter Status:Closed by OVIDIO JARQUIN on 09/14/22 [facility] Instructions 09-10-2022 Patient Instructions Note Date & Type Note Facility 09-10-[address] - 09/10/2022 2:58 PM EST Include protien and fiber in each meal Watch for added sugars in foods Work on adding in exercise All meals and snacks at the dining room table only Preferably evening snack Preferably lean proteins only documented in this encounter [facility] History of Present illness Narrative 09-10-2022 Ovidio [...] TIME: 2:36 PM documented in this encounter [facility] Clinical Note 07-30-2022 Note Date & Type Note Facility 07-30-2022 Note Education (NUTRWS) 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 ([id number]) 1975 M Date Time Provider Department 07/30/22 [...] Encounter Status:Closed by OVIDIO JARQUIN on 07/30/22 [facility] Progress note 07-30-2022 Note Date & Type Note Facility 07-30-2022 Note HNO ID: [id number] Author: Ovidio Jarquin RD Service: ? Author [...] DATE: July 30, 2022 TIME: 10:49 AM [facility] Instructions 07-30-2022 Patient Instructions Note [...] two weekend day documented in this encounter [facility] History of Present illness Narrative 07-30-2022 Ovidio [...] TIME: 10:49 AM documented in this encounter [facility] Evaluation note Note Date & Type Note Facility documented in this encounter [facility] Summary Purpose Family History No Family History [...] or prosecute any alcohol or drug abuse patient.[facility] the event this information is protected by the Federal Confidentiality of Alcohol and Drug Abuse Patient Records regulations: The Federal rules restrict any use of the information to criminally investigate or prosecute any alcohol or drug abuse patient.[facility] Reason for Visit (unrecogniz ed section and [...] BE BASED ON THE PRIMARY CLINICAL RECORDS. [employer] provides no warranty or guarantee of the accuracy or completeness of information in this document.
[2023-10-21 10:36] LABS: Absolute Lymphocyte Count 2.17 X10^3/uL (0.83-4.51); Absolute Neutrophil Count 5.1 X10^3/uL (2.0-7.7); Basophil# 0.05 X10^3/uL; Basophil% 0.6 % (0-1); Eosinophil# 0.11 X10^3/uL; Eosinophils% 1.4 % (0-5); Hematocrit 39.6 % (40-54); Hemoglobin 13.4 g/dL (13.0-16.5); Lymphocyte # 2.17 X10^3/ul (0.83-4.51); Lymphocyte % 27.1 % (19-41); Mean Corp Hgb Conc 33.8 g/dL (32-36); Mean Corpuscular Hgb 30.2 pg (27.0-32.0); Mean Corpuscular Volume 89.4 fL (80-94); Mean Platelet Vol. 10.4 fl (6.2-12.0); Monocyte# 0.57 X10^3/uL; Monocyte% 7.1 % (0-10); NRBC Flagged by Analyzer 0 % (0-5); Neutrophil # 5.08 X10^3/uL (2.7-7.7); Neutrophil % 63.4 % (47-70); Platelet Count 235 K/mm3 (150-450); RBC Distribution Width CV 13.7 % (11.6-14.6); RBC Distribution Width SD 44.2 fl (35.1-43.9); Red Blood Count 4.43 M/mm3 (4.6-6.2)
[2023-10-21 10:51] LABS: Vitamin D,25 Hydroxy 44.2 ng/mL
[2023-10-21 10:53] LABS: Hemoglobin A1c 5.8 % (3.8-5.6)
[2023-10-21 10:55] LABS: AST(SGOT) 18 U/L (15-37); Alanine Aminotransfer ALT/SGPT 45 U/L (16-61); Albumin, Serum 3.8 g/dL (3.2-5.0); Alkaline Phosphatase 67 U/L (45-117); Anion Gap 5 (5-15); BUN 23 mg/dL (7-18); BUN/Creat Ratio 24.6 RATIO (10-20); Calcium,Total 9.1 mg/dL (8.5-10.1); Chloride 107 mmol/L (98-107); Cholesterol 135 mg/dL (200); Creatinine, Serum 0.94 mg/dL (0.70-1.30); EST Glomerular Filtration Rate 91 mL/min (>60); Est Glom Filt Rate - Afr Amer 110 mL/min (>60); Globulin 3.7 g/dL (2.2-4.2); Glucose 113 mg/dL (74-106); High Density Lipoprotein 41 mg/dL; Potassium 3.8 mmol/L (3.5-5.1); Protein, Total 7.5 g/dL (6.4-8.2); Sodium Level 140 mmol/L (136-145); Triglycerides 245 mg/dL; Very Low Density Lipoprotein 49 mg/dL (5-40)
== END | disposition home or self-care (01) ==
LOC: MTLAB 07:48
PROVIDERS: PCP Family Medicine; Referring Provider Family Medicine; Visit Provider Family Medicine
DX: E11.9 Type 2 diabetes mellitus without complications (principal); E55.9 Vitamin D deficiency, unspecified
CPT/HCPCS: 36415; 80053; 80061; 82306; 83036; 85025

== ENCOUNTER → 2024-02-24 | Outpatient (CLI) | payer OTHER, SELFPAY ==
[2024-02-24 10:14] LABS: Absolute Lymphocyte Count 1.42 X10^3/uL (0.83-4.51); Absolute Neutrophil Count 6.7 X10^3/uL (2.0-7.7); Basophil# 0.02 X10^3/uL; Basophil% 0.2 % (0-1); Eosinophil# 0.03 X10^3/uL; Eosinophils% 0.4 % (0-5); Hematocrit 41.3 % (40-54); Hemoglobin 13.6 g/dL (13.0-16.5); Lymphocyte # 1.42 X10^3/ul (0.83-4.51); Lymphocyte % 16.6 % (19-41); Mean Corp Hgb Conc 32.9 g/dL (32-36); Mean Corpuscular Hgb 30.2 pg (27.0-32.0); Mean Corpuscular Volume 91.6 fL (80-94); Monocyte# 0.38 X10^3/uL; Monocyte% 4.4 % (0-10); NRBC Flagged by Analyzer 0 % (0-5); Neutrophil # 6.68 X10^3/uL (2.7-7.7); Platelet Count 237 K/mm3 (150-450); RBC Distribution Width CV 13.9 % (11.6-14.6); RBC Distribution Width SD 46.8 fl (35.1-43.9); Red Blood Count 4.51 M/mm3 (4.6-6.2); White Blood Count 8.6 K/mm3 (4.4-11.0)
[2024-02-24 10:23] LABS: Vitamin D,25 Hydroxy 49.9 ng/mL
[2024-02-24 10:51] LABS: Microalbumin,Random Urine 21.5 mg/L (NO RANGE EST.); Microalbumin:Creatinine Ratio 13.4 mg/g CRE (<30 mg/g CRE)
[2024-02-24 11:06] LABS: ALB/GLOB Ratio 0.9 RATIO (0.9-2.4); AST(SGOT) 20 U/L (15-37); Alanine Aminotransfer ALT/SGPT 34 U/L (16-61); Albumin, Serum 3.8 g/dL (3.2-5.0); Alkaline Phosphatase 72 U/L (45-117); Anion Gap 8 (5-15); BUN 23 mg/dL (7-18); Calcium,Total 9.3 mg/dL (8.5-10.1); Chloride 103 mmol/L (98-107); Cholesterol 135 mg/dL (200); Creatinine, Serum 0.85 mg/dL (0.70-1.30); EST Glomerular Filtration Rate 101 mL/min (>60); Est Glom Filt Rate - Afr Amer 122 mL/min (>60); Globulin 4.1 g/dL (2.2-4.2); Glucose 127 mg/dL (74-106); High Density Lipoprotein 41 mg/dL; Potassium 3.4 mmol/L (3.5-5.1); Protein, Total 7.9 g/dL (6.4-8.2); Sodium Level 138 mmol/L (136-145); Triglycerides 281 mg/dL; Very Low Density Lipoprotein 56 mg/dL (5-40)
[2024-02-24 12:18] LABS: Hemoglobin A1c 5.6 % (3.8-5.6)
== END | disposition home or self-care (01) ==
PROVIDERS: PCP Family Medicine; Visit Provider Family Medicine
DX: E11.9 Type 2 diabetes mellitus without complications (principal); E55.9 Vitamin D deficiency, unspecified
CPT/HCPCS: 36415; 80053; 80061; 82043; 82306; 82570; 83036; 85025

== ENCOUNTER → 2024-06-01 | Outpatient (CLI) | payer OTHER, SELFPAY ==
[2024-06-01 11:15] LABS: Hemoglobin A1c 5.8 % (3.8-5.6)
[2024-06-01 11:46] LABS: ALB/GLOB Ratio 0.9 RATIO (0.9-2.4); AST(SGOT) 24 U/L (15-37); Alanine Aminotransfer ALT/SGPT 51 U/L (16-61); Albumin, Serum 3.6 g/dL (3.2-5.0); Alkaline Phosphatase 73 U/L (45-117); Anion Gap 7 (5-15); BUN 18 mg/dL (7-18); BUN/Creat Ratio 17.8 RATIO (10-20); Calcium,Total 9.2 mg/dL (8.5-10.1); Chloride 106 mmol/L (98-107); Cholesterol 116 mg/dL (200); Creatinine, Serum 1.01 mg/dL (0.70-1.30); EST Glomerular Filtration Rate 83 mL/min (>60); Est Glom Filt Rate - Afr Amer 100 mL/min (>60); Glucose 102 mg/dL (74-106); High Density Lipoprotein 35 mg/dL; Potassium 3.8 mmol/L (3.5-5.1); Protein, Total 7.6 g/dL (6.4-8.2); Sodium Level 137 mmol/L (136-145); Triglycerides 223 mg/dL; Very Low Density Lipoprotein 45 mg/dL (5-40)
== END | disposition home or self-care (01) ==
LOC: MFPLAB 08:43
PROVIDERS: Visit Provider Family Medicine
DX: E11.69 Type 2 diabetes mellitus with other specified complication (principal); E55.9 Vitamin D deficiency, unspecified
CPT/HCPCS: 36415; 80053; 80061; 82306; 83036

== ENCOUNTER → 2024-06-04 | Outpatient (CLI) | payer OTHER, SELFPAY | END | disposition home or self-care (01) | PROVIDERS: PCP Family Medicine; Visit Provider Family Medicine | DX: Z12.5 Encounter for screening for malignant neoplasm of prostate (principal) | CPT/HCPCS: 36415; 84153; G0103 ==

== ENCOUNTER → 2024-06-12 | Outpatient (CLI) | payer OTHER, SELFPAY ==
[2024-06-12 13:30] LABS: Basophil# 0.04 X10^3/uL; Basophil% 0.5 % (0-1); Eosinophil# 0.16 X10^3/uL; Eosinophils% 2.2 % (0-5); Hematocrit 38.9 % (40-54); Hemoglobin 13.3 g/dL (13.0-16.5); Lymphocyte % 24.3 % (19-41); Mean Corp Hgb Conc 34.2 g/dL (32-36); Mean Corpuscular Hgb 30.4 pg (27.0-32.0); Mean Corpuscular Volume 88.8 fL (80-94); Mean Platelet Vol. 10.3 fl (6.2-12.0); Monocyte# 0.41 X10^3/uL; Monocyte% 5.5 % (0-10); NRBC Flagged by Analyzer 0 % (0-5); Neutrophil # 4.99 X10^3/uL (2.7-7.7); Neutrophil % 67.2 % (47-70); Platelet Count 255 K/mm3 (150-450); RBC Distribution Width CV 13.5 % (11.6-14.6); RBC Distribution Width SD 43.8 fl (35.1-43.9); Red Blood Count 4.38 M/mm3 (4.6-6.2); White Blood Count 7.4 K/mm3 (4.4-11.0)
[2024-06-12 13:39] LABS: Erythrocyte Sedimentation Rate 22 mm/hr (0-20)
[2024-06-12 14:00] LABS: ALB/GLOB Ratio 0.9 RATIO (0.9-2.4); AST(SGOT) 24 U/L (15-37); Alanine Aminotransfer ALT/SGPT 50 U/L (16-61); Albumin, Serum 3.7 g/dL (3.2-5.0); Alkaline Phosphatase 72 U/L (45-117); Anion Gap 4 (5-15); BUN 17 mg/dL (7-18); BUN/Creat Ratio 15.2 RATIO (10-20); CRP 6.92 mg/L (0.0-3.0); Calcium,Total 9.2 mg/dL (8.5-10.1); Chloride 106 mmol/L (98-107); Creatinine, Serum 1.12 mg/dL (0.70-1.30); EST Glomerular Filtration Rate 73 mL/min (>60); Est Glom Filt Rate - Afr Amer 89 mL/min (>60); Glucose 182 mg/dL (74-106); Potassium 3.5 mmol/L (3.5-5.1); Protein, Total 7.7 g/dL (6.4-8.2); Sodium Level 136 mmol/L (136-145)
== END | disposition home or self-care (01) ==
LOC: LAB 13:04
PROVIDERS: PCP Family Medicine; Referring Provider Internal Medicine Gastroenterology; Visit Provider Internal Medicine Gastroenterology
DX: K50.90 Crohn's disease, unspecified, without complications (principal)
CPT/HCPCS: 36415; 80053; 85025; 85652; 86140

== ENCOUNTER → 2024-07-13 | Outpatient (CLI) | payer OTHER, SELFPAY | END | disposition home or self-care (01) | PROVIDERS: PCP Family Medicine; Referring Provider Internal Medicine Gastroenterology; Visit Provider Internal Medicine Gastroenterology | DX: K50.90 Crohn's disease, unspecified, without complications (principal) | CPT/HCPCS: 36415 ==

== ENCOUNTER → 2024-11-16 | Outpatient (CLI) | payer OTHER, SELFPAY ==
--- NOTE | 2024-11-16 16:22 | RAD_ITS ---
EXAM: XR Abdomen, 1 View CLINICAL INDICATION: AGILE CAPULE TECHNIQUE: Frontal supine view of the abdomen/pelvis. COMPARISON: No relevant prior studies available. FINDINGS: GASTROINTESTINAL TRACT: Fecal retention in the colon consistent with constipation. No dilation. BONES/JOINTS: Unremarkable. No acute fracture. SOFT TISSUES: Tubular foreign body in the right lower abdominal quadrant. RAD/Abdomen Single View IMPRESSION: Fecal retention in the colon consistent with constipation. Reading Location: [facility]
== END | disposition home or self-care (01) ==
LOC: MTRAD 16:19
PROVIDERS: PCP Family Medicine; Referring Provider Internal Medicine Gastroenterology; Visit Provider Internal Medicine Gastroenterology
DX: K50.90 Crohn's disease, unspecified, without complications (principal)
CPT/HCPCS: 74018

== ENCOUNTER → 2024-11-26 | Outpatient (CLI) | payer OTHER, SELFPAY ==
[2024-11-26 10:50] LABS: Absolute Lymphocyte Count 1.88 X10^3/uL (0.83-4.51); Absolute Neutrophil Count 5.2 X10^3/uL (2.0-7.7); Basophil# 0.03 X10^3/uL; Basophil% 0.4 % (0-1); Eosinophil# 0.12 X10^3/uL; Eosinophils% 1.5 % (0-5); Hematocrit 41.4 % (40-54); Lymphocyte # 1.88 X10^3/ul (0.83-4.51); Lymphocyte % 24.1 % (19-41); Mean Corp Hgb Conc 33.8 g/dL (32-36); Mean Corpuscular Hgb 30.2 pg (27.0-32.0); Mean Corpuscular Volume 89.2 fL (80-94); Mean Platelet Vol. 10.2 fl (6.2-12.0); Monocyte# 0.56 X10^3/uL; Monocyte% 7.2 % (0-10); NRBC Flagged by Analyzer 0 % (0-5); Neutrophil # 5.17 X10^3/uL (2.7-7.7); Neutrophil % 66.4 % (47-70); Platelet Count 239 K/mm3 (150-450); RBC Distribution Width CV 13.6 % (11.6-14.6); RBC Distribution Width SD 43.9 fl (35.1-43.9); Red Blood Count 4.64 M/mm3 (4.6-6.2); White Blood Count 7.8 K/mm3 (4.4-11.0)
[2024-11-26 11:28] LABS: ALB/GLOB Ratio 1.4 RATIO (0.9-2.4); AST(SGOT) 36 U/L (<=37); Alanine Aminotransfer ALT/SGPT 51 U/L (<=46); Albumin, Serum 4.4 g/dL (3.5-5.0); Alkaline Phosphatase 69 U/L (40-129); Anion Gap 12 (5-15); BUN 17 mg/dL (4-19); BUN/Creat Ratio 18.8 RATIO (10-20); Calcium,Total 9.2 mg/dL (7.6-11.0); Carbon Dioxide 22.6 mmol/L (21.0-32.0); Chloride 104 mmol/L (98-108); Cholesterol 137 mg/dL (<=200); Creatinine, Serum 0.91 mg/dL (0.70-1.20); EST Glomerular Filtration Rate 102 (>60); Globulin 3.2 g/dL (2.2-4.2); Glucose 100 mg/dL (70-99); High Density Lipoprotein 34 mg/dL; Low Density Lipoprotein Calc. 36 mg/dL; Protein, Total 7.7 g/dL (5.9-8.4); Sodium Level 138 mmol/L (133-145); Total Bilirubin 0.69 mg/dL (0.00-1.30); Triglycerides 335 mg/dL; Very Low Density Lipoprotein 67 mg/dL (5-40); Vitamin D,25 Hydroxy 40.5 ng/mL (30-100); cholesterol:hdl ratio screen 4.04
[2024-11-26 11:58] LABS: Microalbumin,Random Urine < 12.0 mg/L (NO RANGE EST.); Microalbumin:Creatinine Ratio UNABLE TO CALCULATE mg/g CRE
== END | disposition home or self-care (01) ==
LOC: MFPLAB 08:05
PROVIDERS: PCP Family Medicine; Referring Provider Family Medicine; Visit Provider Family Medicine
DX: E11.9 Type 2 diabetes mellitus without complications (principal); E55.9 Vitamin D deficiency, unspecified
CPT/HCPCS: 36415; 80053; 80061; 82043; 82306; 82570; 83036; 85025

== ENCOUNTER → 2025-03-03 | Outpatient (CLI) | payer OTHER, SELFPAY ==
[2025-03-03 12:07] LABS: Hematocrit 41.2 % (40-54); Hemoglobin 14.3 g/dL (13.0-16.5); Immature Granulocytes Count 0.030 X10^3/uL (0.0-0.0); Mean Corp Hgb Conc 34.7 g/dL (32-36); Mean Corpuscular Volume 87.1 fL (80-94); Mean Platelet Vol. 10.4 fl (6.2-12.0); NRBC Flagged by Analyzer 0 % (0-5); Platelet Count 223 K/mm3 (150-450); RBC Distribution Width CV 12.9 % (11.6-14.6); RBC Distribution Width SD 40.9 fl (35.1-43.9); Red Blood Count 4.73 M/mm3 (4.6-6.2); White Blood Count 8.6 K/mm3 (4.4-11.0)
[2025-03-03 14:22] LABS: AST(SGOT) 30 U/L (<=37); Alanine Aminotransfer ALT/SGPT 42 U/L (<=46); Albumin, Serum 4.8 g/dL (3.5-5.0); Alkaline Phosphatase 65 U/L (40-129); Anion Gap 13 (5-15); BUN 21 mg/dL (4-19); BUN/Creat Ratio 19.4 RATIO (10-20); Calcium,Total 10.0 mg/dL (7.6-11.0); Carbon Dioxide 24.3 mmol/L (21.0-32.0); Chloride 100 mmol/L (98-108); Cholesterol 154 mg/dL (<=200); Globulin 3.3 g/dL (2.2-4.2); Glucose 97 mg/dL (70-99); Low Density Lipoprotein Calc. 41 mg/dL; Potassium 4.1 mmol/L (3.3-5.1); Triglycerides 361 mg/dL; Very Low Density Lipoprotein 72 mg/dL (5-40); Vitamin D,25 Hydroxy 52.8 ng/mL (30-100); cholesterol:hdl ratio screen 3.76
== END | disposition home or self-care (01) ==
LOC: MTLAB 08:47
PROVIDERS: PCP Family Medicine; Referring Provider Family Medicine; Visit Provider Family Medicine
DX: E11.69 Type 2 diabetes mellitus with other specified complication (principal)
CPT/HCPCS: 36415; 80053; 80061; 82306; 83036; 85025

== ENCOUNTER → 2025-06-02 | Outpatient (CLI) | payer OTHER, SELFPAY ==
[2025-06-02 10:21] LABS: Hematocrit 35.5 % (40-54); Hemoglobin 12.5 g/dL (13.0-16.5); Immature Granulocytes Count 0.020 X10^3/uL (0.0-0.0); Mean Corp Hgb Conc 35.2 g/dL (32-36); Mean Corpuscular Volume 89.6 fL (80-94); Mean Platelet Vol. 10.2 fl (6.2-12.0); NRBC Flagged by Analyzer 0 % (0-5); Platelet Count 236 K/mm3 (150-450); RBC Distribution Width CV 13.3 % (11.6-14.6); RBC Distribution Width SD 43.2 fl (35.1-43.9); Red Blood Count 3.96 M/mm3 (4.6-6.2); White Blood Count 5.0 K/mm3 (4.4-11.0)
[2025-06-02 11:08] LABS: Creatinine, Urine (random) 376.00 mg/dL (39.00-259.00); Microalbumin,Random Urine 12.7 mg/L (<20 mg/L)
[2025-06-02 11:11] LABS: AST(SGOT) 34 U/L (<=37); Alanine Aminotransfer ALT/SGPT 59 U/L (<=46); Albumin, Serum 4.5 g/dL (3.5-5.0); Alkaline Phosphatase 58 U/L (40-129); Anion Gap 11 (5-15); BUN 21 mg/dL (4-19); BUN/Creat Ratio 21.3 RATIO (10-20); Calcium,Total 9.4 mg/dL (7.6-11.0); Carbon Dioxide 24.1 mmol/L (21.0-32.0); Chloride 103 mmol/L (98-108); Cholesterol 132 mg/dL (<=200); Globulin 3.1 g/dL (2.2-4.2); Glucose 104 mg/dL (70-99); Low Density Lipoprotein Calc. 57 mg/dL; Potassium 4.1 mmol/L (3.3-5.1); Triglycerides 216 mg/dL; Very Low Density Lipoprotein 43 mg/dL (5-40); Vitamin D,25 Hydroxy 43.9 ng/mL (30-100); cholesterol:hdl ratio screen 4.14
[2025-06-03 16:41] LABS: Ferritin 448 ng/mL (37-417); Iron 79 ug/dL (65-175); Iron Binding Capacity,Total 345 ug/dL (250-450); Iron Binding Capacity,Unsat 266 ug/dL (228-428); Vitamin B12 412 pg/mL (180-914)
== END | disposition home or self-care (01) ==
LOC: MFPLAB 08:08
PROVIDERS: PCP Family Medicine; Visit Provider Family Medicine
DX: E11.8 Type 2 diabetes mellitus with unspecified complications (principal); D64.9 Anemia, unspecified
CPT/HCPCS: 36415; 80053; 80061; 82043; 82306; 82570; 82607; 82728; 83036; 83540; 83550; 85025

== ENCOUNTER → 2025-06-07 | Outpatient (CLI) | payer OTHER, SELFPAY ==
[2025-06-07 18:39] LABS: PSA,Total - Annual Screen 0.93 ng/mL (0.02-4.00)
== END | disposition home or self-care (01) ==
LOC: MFPLAB 15:48
PROVIDERS: PCP Family Medicine
DX: Z12.5 Encounter for screening for malignant neoplasm of prostate (principal)
CPT/HCPCS: 36415; 84153; G0103